=== PATIENT | female | born 1955 | race Two or more races ===

== ENCOUNTER 2021-11-03 17:34 | Emergency (ER) | payer MEDICARE, OTHER ==
[~2021-11-03] VITALS: Ht 167.6 cm; Wt 102.1 kg
--- NOTE | 2021-11-03 17:45 | NUR ---
[facility] from assisted living on room air, breathing evenly and unlabored. Per pateint c/o R knee pain. Kept comfortable, will continue to monitor accordingly.
[2021-11-03] MEDS ORDERED: HYDROMORPHONE HCL 2 MG TABLET PO PRN (18:00)
[2021-11-03] MEDS ORDERED: HYDROMORPHONE HCL 2 MG TABLET ONE (18:10)
--- NOTE | 2021-11-03 20:46 | NUR ---
[facility] CALLED FOR BLS BACK TO SNF PER [facility] ETA - 60MIN
[2021-11-03] MEDS ORDERED: oxyCODONE HCL SR 20MG TAB.SR.12H PO SCH (21:00)
--- NOTE | 2021-11-03 21:26 | NUR ---
report given to Severance Helenwood
[2021-11-03] MEDS ORDERED: oxyCODONE IR immediate release 5 MG ONE (22:33)
--- NOTE | 2021-11-03 22:39 | NUR ---
REPORT GIVEN TO SHARONA COLEMAN FOR TRANSPORT BACK TO FACILITY
[2021-11-03 23:20] VITALS: BP 135/70
== END 2021-11-03 23:21 ==
LOC: ER 17:41
DX: I87.2 Venous insufficiency (chronic) (peripheral) (principal); R60.0 Localized edema; F32.A Depression, unspecified; Z88.2 Allergy status to sulfonamides; Z88.8 Allergy status to other drugs, medicaments and biological substances
CPT/HCPCS: 93971-TC

== ENCOUNTER 2022-12-12 13:31 | Inpatient (IN) | payer MEDICARE, OTHER ==
[~2022-12-12] VITALS: Ht 167.6 cm; Wt 95.3 kg
[2022-12-12] MEDS ORDERED: IV NS 0.9% 500 ML BAG IV ONE (15:30)
[2022-12-12 15:51] LABS: BASOPHILS # (AUTO) 0.1 K/uL (0.0-0.2); BASOPHILS % (AUTO) 0.4 % (0.0-2.0); EOSINOPHILS # (AUTO) 0.1 K/uL (0.0-0.7); EOSINOPHILS % (AUTO) 0.6 % (0.0-6.0); HEMATOCRIT 47 % (33-45); HEMOGLOBIN 14.6 g/dL (11.5-14.8); LYMPHOCYTES # (AUTO) 1.4 K/uL (0.8-4.8); MEAN CORPUSCULAR HEMOGLOBIN 30 PG (26.0-33.0); MEAN CORPUSCULAR HGB CONC 31 g/dl (31.0-36.0); MEAN CORPUSCULAR VOLUME 95 fL (82-100); MONOCYTES # (AUTO) 0.8 K/uL (0.1-1.30); MONOCYTES % (AUTO) 5.8 % (2.0-12.0); NEUTROPHILS # (AUTO) 11.3 K/uL (1.8-8.9); NEUTROPHILS % (AUTO) 83.2 % (43.0-81.0); PLATELET COUNT (AUTO) 354 K/uL (150-450); RED BLOOD CELL COUNT(AUTO) 4.91 MIL/uL (4.0-5.2); RED CELL DISTRIBUTION WIDTH 17.6 % (11.5-15.0); WHITE BLOOD COUNT (AUTO) 13.6 K/uL (4.3-11.0)
[2022-12-12 16:02] LABS: ALBUMIN 3.1 g/dL (3.4-5.0); BILIRUBIN,DIRECT 0.1 mg/dL (0.0-0.2); BILIRUBIN,TOTAL 0.3 mg/dL (0.2-1.0); CALCIUM, SERUM 9.3 mg/dL (8.5-10.1); POTASSIUM 4.4 mmol/L (3.5-5.1); TOTAL PROTEIN, SERUM 7.7 g/dL (6.4-8.2)
[2022-12-12 16:04] LABS: INR 1.08 (0.91-1.10); PARTIAL THROMBOPLASTIN TIME 41.6 SEC (24.3-34.3); PROTHROMBIN TIME 11.3 SECS (9.2-11.1)
[2022-12-12 16:10] LABS: APPEARANCE,URINE TURBID (CLEAR); BILIRUBIN,URINE 2+ (NEGATIVE); BLOOD, URINE 3+ Ery/uL (NEGATIVE); COLOR,URINE RED (YELLOW); KETONES,URINE 1+ mg/dL (NEGATIVE); LEUKOCYTE ESTERASE ,URINE 3+ (NEGATIVE); NITRITE, URINE POSITIVE (NEGATIVE); PH,URINE 7.5 (5.0-8.0); PROTEIN,URINE 3+ mg/dl (NEGATIVE); UGLUCOSE NEGATIVE (NEGATIVE)
[2022-12-12] MEDS ORDERED: CEFTRIAXONE 1GM BAG (ER ONLY) 50 ML IV ONE ×2 (16:30→16:54)
[2022-12-12] MEDS ORDERED: TRIA80CR12 TP (16:46)
[2022-12-12] MEDS ORDERED: POTA8TAB3 PO (16:46)
[2022-12-12] MEDS ORDERED: ESCI10TA PO (16:46)
[2022-12-12] MEDS ORDERED: FURO-144 PO (16:46)
[2022-12-12] MEDS ORDERED: HYDR2TAB7 PO (16:46)
[2022-12-12] MEDS ORDERED: APIX2.5T PO (16:46)
[2022-12-12] MEDS ORDERED: HYDR-3895 PO (16:46)
[2022-12-12] MEDS ORDERED: LIDO10VI IJ (16:46)
[2022-12-12] MEDS ORDERED: ACET-868 PO (16:46)
[2022-12-12] MEDS ORDERED: OXYC20TA42 PO (16:46)
[2022-12-12] MEDS ORDERED: GABA800T11 PO (16:46)
[2022-12-12 16:47] LABS: RBC,URINE TOO NUMEROUS TO COUN /HPF (0-2); WBC,URINE TOO NUMEROUS TO COUN /HPF (0-3)
[2022-12-12 16:49] LABS: ADD URINE CULTURE YES; BACTERIA,URINE Many /HPF (None Seen); CALCIUM OXALATE CRYSTALS,UR Few /HPF (None Seen); SQUAMOUS EPITHELIAL CELL,UR Few /HPF (None Seen); URINE AMORPHOUS URATE Many /HPF (None Seen)
[2022-12-12 17:38] LABS: LACTIC ACID 1.5 mmol/L (0.4-2.0)
[2022-12-12] MEDS ORDERED: ONDANSETRON HCL/PF 4 MG/2 ML VIAL IVP PRN (18:00)
[2022-12-12] MEDS ORDERED: MAG HYDROX/AL HYDROX/SIMETH 30 ML UDC PO PRN (18:00)
[2022-12-12] MEDS ORDERED: Z GUARD REMEDY 4 OZ OINT TP PRN (18:00)
[2022-12-12] MEDS ORDERED: ZOLPIDEM TARTRATE 5 MG TABLET PO PRN (18:00)
[2022-12-12] MEDS ORDERED: MAGNESIUM HYDROXIDE 30 ML UDC PO PRN (18:00)
[2022-12-12] MEDS ORDERED: ACETAMINOPHEN 325 MG TABLET PO PRN (18:00)
[2022-12-12] MEDS ORDERED: hydrOXYzine PAMOATE 25 MG CAPSULE PO PRN (19:30)
[2022-12-12 20:30] VITALS: BP 94/65; TEMP 97.6; O2SAT 100
[2022-12-12] MEDS: CEFTRIAXONE 1 G in IV D5W 50 ML IV SCH (21:31)
[2022-12-12] MEDS: IV NS 0.9% 1,000 ML IV PRN (21:35)
[2022-12-13] VITALS: BP 100/65; TEMP 97.8; O2SAT 100
[2022-12-13 04:12] VITALS: BP 100/57; TEMP 97.6; O2SAT 99
[2022-12-13 05:47] LABS: BASOPHILS % (AUTO) 0.2 % (0.0-2.0); EOSINOPHILS # (AUTO) 0.1 K/uL (0.0-0.7); EOSINOPHILS % (AUTO) 0.4 % (0.0-6.0); HEMATOCRIT 50 % (33-45); HEMOGLOBIN 14.9 g/dL (11.5-14.8); LYMPHOCYTES # (AUTO) 1.6 K/uL (0.8-4.8); LYMPHOCYTES % (AUTO) 10.5 % (20.0-44.0); MEAN CORPUSCULAR HEMOGLOBIN 30 PG (26.0-33.0); MEAN CORPUSCULAR HGB CONC 30 g/dl (31.0-36.0); MEAN CORPUSCULAR VOLUME 100 fL (82-100); MONOCYTES # (AUTO) 0.9 K/uL (0.1-1.30); NEUTROPHILS # (AUTO) 12.4 K/uL (1.8-8.9); NEUTROPHILS % (AUTO) 82.9 % (43.0-81.0); PLATELET COUNT (AUTO) 275 K/uL (150-450); RED CELL DISTRIBUTION WIDTH 19.6 % (11.5-15.0); WHITE BLOOD COUNT (AUTO) 14.9 K/uL (4.3-11.0)
[2022-12-13 06:15] LABS: CALCIUM, SERUM 8.9 mg/dL (8.5-10.1); CREATININE 2.8 mg/dL (0.6-1.3); MAGNESIUM 2.9 mg/dL (1.8-2.4); PHOSPHORUS 5.7 mg/dL (2.5-4.9); POTASSIUM 4.7 mmol/L (3.5-5.1)
[2022-12-13] MEDS: IV NS 0.9% 1,000 ML IV PRN (06:25)
[2022-12-13 07:30] VITALS: BP 84/46; TEMP 97.5; O2SAT 94
[2022-12-13] MEDS ORDERED: oxyCODONE HCL SR 20MG TAB.SR.12H PO SCH (08:00)
[2022-12-13] MEDS: PANTOPRAZOLE 40 MG TABLET.DR PO SCH (08:13)
[2022-12-13] MEDS: ESCITALOPRAM OXALATE (10 MG) 10 MG TABLET PO SCH (08:56)
[2022-12-13] MEDS: HYDROMORPHONE HCL 2 MG TABLET PO SCH ×2 (08:56→16:35)
[2022-12-13] MEDS: GABAPENTIN 400 MG CAPSULE PO SCH ×3 (08:56→16:35)
[2022-12-13] MEDS ORDERED: HEPARIN SODIUM, PORCINE 5000 UNITS/1 ML VIAL SQ SCH (09:00)
[2022-12-13] MEDS ORDERED: Sodium Bicarbonate 100 MEQ in IV D5/0.45 NACL 1,000 ML IV PRN (10:00)
[2022-12-13] MEDS: Sodium Bicarbonate 100 MEQ in IV D5/0.45 NACL 1,000 ML IV SCH ×2 (11:39→20:20)
[2022-12-13 12:00] VITALS: BP 82/44; TEMP 97.3; O2SAT 94
[2022-12-13] MEDS: CITRIC ACID/SODIUM CITRATE (BICITRA)15 ML UDC PO SCH ×3 (13:49→21:49)
[2022-12-13 16:00] VITALS: BP 86/62; TEMP 97.2; O2SAT 99
[2022-12-13 18:49] LABS: CREATININE, URINE 37.2 MG/DL (30.0-125.0); URINE TOTAL PROTEIN 540.4 mg/dL (0-11.9)
[2022-12-13 19:46] LABS: APPEARANCE,URINE Cloudy (CLEAR)
[2022-12-13 19:47] LABS: COLOR,URINE BROWN (YELLOW)
[2022-12-13 19:53] LABS: BACTERIA,URINE 3+ /HPF (None Seen); RBC,URINE TOO NUMEROUS TO COUN /HPF (0-2); WBC,URINE 51-80 /HPF (0-3)
[2022-12-13 19:54] LABS: SQUAMOUS EPITHELIAL CELL,UR 0-2 /HPF (None Seen)
[2022-12-13 20:00] VITALS: BP 91/51; TEMP 97.9; O2SAT 95
[2022-12-13] MEDS: CEFTRIAXONE 1 G in IV D5W 50 ML IV SCH ×2 (20:21→21:48)
[2022-12-13 21:29] LABS: EOSINOPHIL,URINE Few
[2022-12-14] VITALS: BP 89/56; TEMP 97.4; O2SAT 97
[2022-12-14 04:00] VITALS: BP 95/58; TEMP 96.8; O2SAT 96
[2022-12-14 05:47] LABS: BASOPHILS % (AUTO) 0.2 % (0.0-2.0); EOSINOPHILS # (AUTO) 0.2 K/uL (0.0-0.7); EOSINOPHILS % (AUTO) 1.3 % (0.0-6.0); HEMATOCRIT 40 % (33-45); HEMOGLOBIN 12.6 g/dL (11.5-14.8); LYMPHOCYTES # (AUTO) 1.1 K/uL (0.8-4.8); LYMPHOCYTES % (AUTO) 9.6 % (20.0-44.0); MEAN CORPUSCULAR HEMOGLOBIN 30 PG (26.0-33.0); MEAN CORPUSCULAR HGB CONC 31 g/dl (31.0-36.0); MEAN CORPUSCULAR VOLUME 94 fL (82-100); MONOCYTES # (AUTO) 0.6 K/uL (0.1-1.30); MONOCYTES % (AUTO) 5.6 % (2.0-12.0); NEUTROPHILS # (AUTO) 9.5 K/uL (1.8-8.9); NEUTROPHILS % (AUTO) 83.3 % (43.0-81.0); PLATELET COUNT (AUTO) 265 K/uL (150-450); RED BLOOD CELL COUNT(AUTO) 4.25 MIL/uL (4.0-5.2); RED CELL DISTRIBUTION WIDTH 17.8 % (11.5-15.0); WHITE BLOOD COUNT (AUTO) 11.5 K/uL (4.3-11.0)
[2022-12-14 06:10] LABS: CALCIUM, SERUM 8.5 mg/dL (8.5-10.1); CREATININE 3.2 mg/dL (0.6-1.3); MAGNESIUM 2.4 mg/dL (1.8-2.4); POTASSIUM 3.5 mmol/L (3.5-5.1)
[2022-12-14 06:23] LABS: ALBUMIN 2.5 g/dL (3.4-5.0); BILIRUBIN,TOTAL 0.2 mg/dL (0.2-1.0); TOTAL PROTEIN, SERUM 6.4 g/dL (6.4-8.2)
[2022-12-14] MEDS: Sodium Bicarbonate 100 MEQ in IV D5/0.45 NACL 1,000 ML IV SCH ×2 (06:35→17:18)
[2022-12-14 08:00] VITALS: BP 82/46; TEMP 97.4; O2SAT 94
[2022-12-14] MEDS ORDERED: NEPRO VAN 237 ML CAN PO PRN (08:30)
[2022-12-14] MEDS: HYDROMORPHONE HCL 2 MG TABLET PO SCH ×2 (09:10→17:00)
[2022-12-14] MEDS: PANTOPRAZOLE 40 MG TABLET.DR PO SCH (09:10)
[2022-12-14] MEDS: ESCITALOPRAM OXALATE (10 MG) 10 MG TABLET PO SCH (09:10)
[2022-12-14] MEDS: GABAPENTIN 400 MG CAPSULE PO SCH ×4 (09:10→17:00)
[2022-12-14] MEDS: CITRIC ACID/SODIUM CITRATE (BICITRA)15 ML UDC PO SCH ×6 (09:10→21:00)
[2022-12-14 16:00] VITALS: BP 96/49; TEMP 98.6; O2SAT 96
[2022-12-14 20:00] VITALS: BP 73/44; TEMP 98.1; O2SAT 98
[2022-12-14] MEDS: CEFTRIAXONE 1 G in IV D5W 50 ML IV SCH (20:22)
[2022-12-14] MEDS: oxyCODONE IR immediate release 5 MG PO SCH (21:00)
[2022-12-15] VITALS (7 sets, daily range): BP systolic 75–104; BP diastolic 44–60; TEMP 97.3–98.2; O2SAT 96–99
[2022-12-15] MEDS: Sodium Bicarbonate 100 MEQ in IV D5/0.45 NACL 1,000 ML IV SCH ×3 (02:04→22:28)
[2022-12-15] MEDS: oxyCODONE IR immediate release 5 MG PO SCH ×3 (05:00→21:00)
[2022-12-15 06:07] LABS: PTH, INTACT 47 pg/mL (15-65)
[2022-12-15 07:24] LABS: BASOPHILS % (AUTO) 0.3 % (0.0-2.0); EOSINOPHILS # (AUTO) 0.2 K/uL (0.0-0.7); EOSINOPHILS % (AUTO) 2.5 % (0.0-6.0); HEMATOCRIT 36 % (33-45); HEMOGLOBIN 11.6 g/dL (11.5-14.8); LYMPHOCYTES % (AUTO) 12.6 % (20.0-44.0); MEAN CORPUSCULAR HEMOGLOBIN 30 PG (26.0-33.0); MEAN CORPUSCULAR HGB CONC 32 g/dl (31.0-36.0); MEAN CORPUSCULAR VOLUME 93 fL (82-100); MONOCYTES # (AUTO) 0.5 K/uL (0.1-1.30); MONOCYTES % (AUTO) 5.9 % (2.0-12.0); NEUTROPHILS # (AUTO) 6.1 K/uL (1.8-8.9); NEUTROPHILS % (AUTO) 78.7 % (43.0-81.0); PLATELET COUNT (AUTO) 234 K/uL (150-450); RED BLOOD CELL COUNT(AUTO) 3.84 MIL/uL (4.0-5.2); RED CELL DISTRIBUTION WIDTH 17.5 % (11.5-15.0); WHITE BLOOD COUNT (AUTO) 7.8 K/uL (4.3-11.0)
[2022-12-15] MEDS: PANTOPRAZOLE 40 MG TABLET.DR PO SCH (07:30)
[2022-12-15 07:50] LABS: CREATININE 2.9 mg/dL (0.6-1.3); MAGNESIUM 2.2 mg/dL (1.8-2.4); PHOSPHORUS 4.6 mg/dL (2.5-4.9); POTASSIUM 3.1 mmol/L (3.5-5.1)
[2022-12-15] MEDS: GABAPENTIN 400 MG CAPSULE PO SCH ×3 (09:00→17:00)
[2022-12-15] MEDS: ESCITALOPRAM OXALATE (10 MG) 10 MG TABLET PO SCH (09:00)
[2022-12-15] MEDS: HYDROMORPHONE HCL 2 MG TABLET PO SCH ×2 (09:00→17:00)
[2022-12-15] MEDS: CITRIC ACID/SODIUM CITRATE (BICITRA)15 ML UDC PO SCH ×4 (09:00→20:26)
[2022-12-15] MEDS ORDERED: LEVOFLOXACIN 500 MG /D5W 100ML 500 MG in PREMIX 1 EA IV SCH ×4 (11:00)
[2022-12-15] MEDS ORDERED: POTASSIUM CHLORIDE 20 MEQ POWDER PACKET PO ONE (15:00)
[2022-12-15] MEDS: CEFTRIAXONE 1 G in IV D5W 50 ML IV SCH (19:54)
[2022-12-16] VITALS: BP 102/58; TEMP 97.9; O2SAT 97
[2022-12-16 04:00] VITALS: BP 100/58; TEMP 97.9; O2SAT 95
[2022-12-16] MEDS: oxyCODONE IR immediate release 5 MG PO SCH ×3 (04:51→20:41)
[2022-12-16 05:42] LABS: BASOPHILS % (AUTO) 0.6 % (0.0-2.0); EOSINOPHILS # (AUTO) 0.2 K/uL (0.0-0.7); EOSINOPHILS % (AUTO) 2.2 % (0.0-6.0); HEMATOCRIT 37 % (33-45); HEMOGLOBIN 11.5 g/dL (11.5-14.8); LYMPHOCYTES # (AUTO) 0.8 K/uL (0.8-4.8); LYMPHOCYTES % (AUTO) 11.3 % (20.0-44.0); MEAN CORPUSCULAR HEMOGLOBIN 30 PG (26.0-33.0); MEAN CORPUSCULAR HGB CONC 32 g/dl (31.0-36.0); MEAN CORPUSCULAR VOLUME 94 fL (82-100); MONOCYTES # (AUTO) 0.6 K/uL (0.1-1.30); MONOCYTES % (AUTO) 7.8 % (2.0-12.0); NEUTROPHILS # (AUTO) 5.6 K/uL (1.8-8.9); NEUTROPHILS % (AUTO) 78.1 % (43.0-81.0); PLATELET COUNT (AUTO) 220 K/uL (150-450); RED BLOOD CELL COUNT(AUTO) 3.89 MIL/uL (4.0-5.2); RED CELL DISTRIBUTION WIDTH 17.4 % (11.5-15.0); WHITE BLOOD COUNT (AUTO) 7.2 K/uL (4.3-11.0)
[2022-12-16 05:57] LABS: CALCIUM, SERUM 8.2 mg/dL (8.5-10.1); CREATININE 2.6 mg/dL (0.6-1.3); MAGNESIUM 2.2 mg/dL (1.8-2.4); PHOSPHORUS 4.2 mg/dL (2.5-4.9); POTASSIUM 2.9 mmol/L (3.5-5.1)
[2022-12-16] MEDS: PANTOPRAZOLE 40 MG TABLET.DR PO SCH (07:28)
[2022-12-16 08:29] VITALS: BP 99/60; TEMP 97.5; O2SAT 94
[2022-12-16] MEDS: Sodium Bicarbonate 100 MEQ in IV D5/0.45 NACL 1,000 ML IV SCH ×2 (08:43→17:55)
[2022-12-16] MEDS: HYDROMORPHONE HCL 2 MG TABLET PO SCH ×2 (08:51→16:12)
[2022-12-16] MEDS: ESCITALOPRAM OXALATE (10 MG) 10 MG TABLET PO SCH (08:51)
[2022-12-16] MEDS: CITRIC ACID/SODIUM CITRATE (BICITRA)15 ML UDC PO SCH ×4 (08:52→20:24)
[2022-12-16] MEDS: GABAPENTIN 400 MG CAPSULE PO SCH ×3 (08:52→16:13)
[2022-12-16 13:28] VITALS: BP 81/51; TEMP 99; O2SAT 93
[2022-12-16] MEDS ORDERED: MEGESTROL ACETATE 40 MG TABLET PO SCH (14:00)
[2022-12-16 15:09] LABS: CALCIUM, SERUM 8.2 mg/dL (8.5-10.1); CREATININE 2.5 mg/dL (0.6-1.3); POTASSIUM 3.4 mmol/L (3.5-5.1)
[2022-12-16] MEDS: MEGESTROL ACETATE SUSP 400 MG/10 ML UDC PO SCH (15:09)
[2022-12-16] MEDS: CEFTRIAXONE 1 G in IV D5W 50 ML IV SCH (19:42)
[2022-12-16 20:00] VITALS: BP 99/45; TEMP 98.2; O2SAT 93
[2022-12-16] MEDS: LACTULOSE 10 G/15 ML UDC (PYXIS) PO SCH (23:29)
[2022-12-16] MEDS ORDERED: oxyCODONE HCL SR 20MG TAB.SR.12H PO ONE (23:30)
[2022-12-17] VITALS (7 sets, daily range): BP systolic 90–96; BP diastolic 50–63; TEMP 97.6–100.2; O2SAT 92–98
[2022-12-17] MEDS ORDERED: oxyCODONE IR immediate release 5 MG PO ONE
[2022-12-17] MEDS: Sodium Bicarbonate 100 MEQ in IV D5/0.45 NACL 1,000 ML IV SCH ×2 (04:04→14:08)
[2022-12-17] MEDS: oxyCODONE IR immediate release 5 MG PO SCH ×3 (05:00→21:00)
[2022-12-17 06:20] LABS: BASOPHILS % (AUTO) 0.2 % (0.0-2.0); EOSINOPHILS # (AUTO) 0.2 K/uL (0.0-0.7); HEMATOCRIT 36 % (33-45); HEMOGLOBIN 11.4 g/dL (11.5-14.8); LYMPHOCYTES # (AUTO) 1.3 K/uL (0.8-4.8); LYMPHOCYTES % (AUTO) 17.5 % (20.0-44.0); MEAN CORPUSCULAR HEMOGLOBIN 30 PG (26.0-33.0); MEAN CORPUSCULAR HGB CONC 32 g/dl (31.0-36.0); MEAN CORPUSCULAR VOLUME 93 fL (82-100); MONOCYTES # (AUTO) 0.7 K/uL (0.1-1.30); MONOCYTES % (AUTO) 9.3 % (2.0-12.0); NEUTROPHILS # (AUTO) 5.4 K/uL (1.8-8.9); PLATELET COUNT (AUTO) 227 K/uL (150-450); RED CELL DISTRIBUTION WIDTH 17.6 % (11.5-15.0); WHITE BLOOD COUNT (AUTO) 7.7 K/uL (4.3-11.0)
[2022-12-17 07:11] LABS: CALCIUM, SERUM 8.7 mg/dL (8.5-10.1); CREATININE 2.4 mg/dL (0.6-1.3); MAGNESIUM 2.2 mg/dL (1.8-2.4); PHOSPHORUS 3.3 mg/dL (2.5-4.9)
[2022-12-17 07:42] LABS: POTASSIUM 2.7 mmol/L (3.5-5.1)
[2022-12-17] MEDS: MEGESTROL ACETATE SUSP 400 MG/10 ML UDC PO SCH (08:09)
[2022-12-17] MEDS: ESCITALOPRAM OXALATE (10 MG) 10 MG TABLET PO SCH (08:10)
[2022-12-17] MEDS: PANTOPRAZOLE 40 MG TABLET.DR PO SCH (08:10)
[2022-12-17] MEDS: HYDROMORPHONE HCL 2 MG TABLET PO SCH ×2 (08:10→16:08)
[2022-12-17] MEDS: GABAPENTIN 400 MG CAPSULE PO SCH ×4 (08:10→16:27)
[2022-12-17] MEDS: LACTULOSE 10 G/15 ML UDC (PYXIS) PO SCH ×3 (08:10→16:27)
[2022-12-17] MEDS: CITRIC ACID/SODIUM CITRATE (BICITRA)15 ML UDC PO SCH ×5 (08:11→21:00)
[2022-12-17] MEDS: POTASSIUM CHLORIDE 20 MEQ POWDER PACKET PO STA ×2 (09:43→10:14)
[2022-12-17] MEDS: LEVOFLOXACIN (250MG) 250 MG TABLET PO SCH (10:24)
[2022-12-17] MEDS ORDERED: POTASSIUM CL. PREMIX PERIPHER. 50 ML IV ONE (10:30)
[2022-12-17] MEDS: POTASSIUM CL. PREMIX PERIPHER. 50 ML IV SCH ×5 (11:41→15:34)
[2022-12-17 12:07] LABS: *SPE A/G RATIO 0.9 (0.7-1.7); *SPE ALBUMIN 2.8 g/dL (2.9-4.4); *SPE ALPHA-1-GLOBULIN 0.3 g/dL (0.0-0.4); *SPE ALPHA-2-GLOBULIN 0.7 g/dL (0.4-1.0); *SPE M-SPIKE 0.1 g/dL (Not Observed); *SPE PROTEIN TOTAL 5.8 g/dL (6.0-8.5)
[2022-12-17] MEDS ORDERED: IV NS 0.9% 1,000 ML IV ONE (14:30)
[2022-12-17 15:07] LABS: CALCIUM, SERUM 8.5 mg/dL (8.5-10.1); CREATININE 2.2 mg/dL (0.6-1.3); POTASSIUM 3.3 mmol/L (3.5-5.1)
[2022-12-17] MEDS: CEFTRIAXONE 1 G in IV D5W 50 ML IV SCH (20:53)
[2022-12-17] MEDS ORDERED: MORPHINE SULFATE INJ 2 MG/ML DISP.SYRIN IV ONE (22:00)
[2022-12-18] VITALS: BP 91/55; TEMP 99; O2SAT 95
[2022-12-18 03:58] VITALS: BP 102/49; TEMP 99.3; O2SAT 95
[2022-12-18] MEDS ORDERED: MORPHINE SULFATE INJ 2 MG/ML DISP.SYRIN IV ONE (04:00)
[2022-12-18] MEDS: oxyCODONE IR immediate release 5 MG PO SCH ×3 (05:00→21:00)
[2022-12-18 07:04] VITALS: BP 85/46
[2022-12-18 07:17] LABS: BILIRUBIN,TOTAL 0.3 mg/dL (0.2-1.0); CALCIUM, SERUM 8.7 mg/dL (8.5-10.1); PHOSPHORUS 2.7 mg/dL (2.5-4.9); POTASSIUM 3.5 mmol/L (3.5-5.1); TOTAL PROTEIN, SERUM 5.8 g/dL (6.4-8.2)
[2022-12-18 07:20] LABS: BASOPHILS # (AUTO) 0.1 K/uL (0.0-0.2); BASOPHILS % (AUTO) 0.6 % (0.0-2.0); EOSINOPHILS # (AUTO) 0.2 K/uL (0.0-0.7); EOSINOPHILS % (AUTO) 1.6 % (0.0-6.0); HEMATOCRIT 36 % (33-45); HEMOGLOBIN 11.3 g/dL (11.5-14.8); LYMPHOCYTES # (AUTO) 1.5 K/uL (0.8-4.8); LYMPHOCYTES % (AUTO) 13.3 % (20.0-44.0); MEAN CORPUSCULAR HEMOGLOBIN 29 PG (26.0-33.0); MEAN CORPUSCULAR HGB CONC 31 g/dl (31.0-36.0); MEAN CORPUSCULAR VOLUME 93 fL (82-100); MONOCYTES # (AUTO) 0.9 K/uL (0.1-1.30); MONOCYTES % (AUTO) 7.6 % (2.0-12.0); NEUTROPHILS # (AUTO) 8.6 K/uL (1.8-8.9); NEUTROPHILS % (AUTO) 76.9 % (43.0-81.0); PLATELET COUNT (AUTO) 224 K/uL (150-450); RED CELL DISTRIBUTION WIDTH 17.4 % (11.5-15.0); WHITE BLOOD COUNT (AUTO) 11.2 K/uL (4.3-11.0)
[2022-12-18 07:30] VITALS: BP 93/43; TEMP 98.6; O2SAT 97
[2022-12-18] MEDS: LACTULOSE 10 G/15 ML UDC (PYXIS) PO SCH ×3 (09:12→17:00)
[2022-12-18] MEDS: ESCITALOPRAM OXALATE (10 MG) 10 MG TABLET PO SCH (09:12)
[2022-12-18] MEDS: CITRIC ACID/SODIUM CITRATE (BICITRA)15 ML UDC PO SCH ×5 (09:12→21:00)
[2022-12-18] MEDS: MEGESTROL ACETATE SUSP 400 MG/10 ML UDC PO SCH (09:12)
[2022-12-18] MEDS: HYDROMORPHONE HCL 2 MG TABLET PO SCH (09:13)
[2022-12-18] MEDS: GABAPENTIN 400 MG CAPSULE PO SCH ×3 (09:13→16:02)
[2022-12-18] MEDS: PANTOPRAZOLE 40 MG TABLET.DR PO SCH (09:27)
[2022-12-18 16:00] VITALS: BP 82/48; TEMP 98.6; O2SAT 96
[2022-12-18] MEDS ORDERED: hydrALAZINE HCL 10 MG TABLET PO PRN (16:30)
[2022-12-18] MEDS ORDERED: hydrALAZINE HCL 10 MG TABLET PO SCH (18:00)
[2022-12-18 19:30] VITALS: BP 103/66; TEMP 100.6; O2SAT 91
[2022-12-18] MEDS: CEFTRIAXONE 1 G in IV D5W 50 ML IV SCH (20:21)
[2022-12-19] MEDS: oxyCODONE IR immediate release 5 MG PO SCH ×3 (06:03→21:00)
[2022-12-19 07:30] VITALS: BP 94/57; TEMP 99.7; O2SAT 92
[2022-12-19] MEDS: PANTOPRAZOLE 40 MG TABLET.DR PO SCH (07:44)
[2022-12-19] MEDS: ESCITALOPRAM OXALATE (10 MG) 10 MG TABLET PO SCH (08:28)
[2022-12-19] MEDS: GABAPENTIN 400 MG CAPSULE PO SCH ×3 (08:28→16:16)
[2022-12-19] MEDS: MEGESTROL ACETATE SUSP 400 MG/10 ML UDC PO SCH (09:00)
[2022-12-19] MEDS: LACTULOSE 10 G/15 ML UDC (PYXIS) PO SCH ×2 (09:00→16:16)
[2022-12-19] MEDS: CITRIC ACID/SODIUM CITRATE (BICITRA)15 ML UDC PO SCH ×4 (09:00→21:00)
[2022-12-19 09:56] LABS: BASOPHILS # (AUTO) 0.1 K/uL (0.0-0.2); BASOPHILS % (AUTO) 0.5 % (0.0-2.0); EOSINOPHILS # (AUTO) 0.1 K/uL (0.0-0.7); EOSINOPHILS % (AUTO) 0.5 % (0.0-6.0); HEMATOCRIT 39 % (33-45); HEMOGLOBIN 11.7 g/dL (11.5-14.8); LYMPHOCYTES # (AUTO) 1.5 K/uL (0.8-4.8); LYMPHOCYTES % (AUTO) 6.4 % (20.0-44.0); MEAN CORPUSCULAR HEMOGLOBIN 29 PG (26.0-33.0); MEAN CORPUSCULAR HGB CONC 30 g/dl (31.0-36.0); MEAN CORPUSCULAR VOLUME 97 fL (82-100); MONOCYTES # (AUTO) 1.2 K/uL (0.1-1.30); MONOCYTES % (AUTO) 4.9 % (2.0-12.0); NEUTROPHILS # (AUTO) 20.9 K/uL (1.8-8.9); NEUTROPHILS % (AUTO) 87.7 % (43.0-81.0); PLATELET COUNT (AUTO) 219 K/uL (150-450); RED BLOOD CELL COUNT(AUTO) 3.98 MIL/uL (4.0-5.2); RED CELL DISTRIBUTION WIDTH 18.6 % (11.5-15.0); WHITE BLOOD COUNT (AUTO) 23.8 K/uL (4.3-11.0)
[2022-12-19 10:09] LABS: ALBUMIN 2.2 g/dL (3.4-5.0); BILIRUBIN,TOTAL 0.3 mg/dL (0.2-1.0); CREATININE 2.1 mg/dL (0.6-1.3); MAGNESIUM 2.2 mg/dL (1.8-2.4); PHOSPHORUS 3.5 mg/dL (2.5-4.9); POTASSIUM 3.7 mmol/L (3.5-5.1); TOTAL PROTEIN, SERUM 6.6 g/dL (6.4-8.2)
[2022-12-19] MEDS: LEVOFLOXACIN (250MG) 250 MG TABLET PO SCH (11:00)
[2022-12-19] MEDS ORDERED: IV D5/ 0.9% NACL 1,000 ML IV ONE (14:00)
[2022-12-19] MEDS: VANCOMYCIN 0.75 GM in IV D5W 250 ML IV SCH (15:25)
[2022-12-19] MEDS ORDERED: CEFEPIME 1 GM in IV D5W 50 ML IV SCH (16:00)
[2022-12-19 19:14] LABS: APPEARANCE,URINE CLOUDY (CLEAR); BILIRUBIN,URINE NEGATIVE (NEGATIVE); BLOOD, URINE 2+ Ery/uL (NEGATIVE); COLOR,URINE YELLOW (YELLOW); KETONES,URINE NEGATIVE (NEGATIVE); LEUKOCYTE ESTERASE ,URINE 2+ (NEGATIVE); NITRITE, URINE NEGATIVE (NEGATIVE); PROTEIN,URINE 1+ mg/dl (NEGATIVE); UGLUCOSE NEGATIVE (NEGATIVE); UROBILINOGEN,URINE 0.2 EU/dL (0.2)
[2022-12-19 19:31] LABS: ADD URINE CULTURE YES; BACTERIA,URINE 3+ /HPF (None Seen); MUCUS,URINE Moderate /LPF (None Seen); WBC,URINE 21-50 /HPF (0-3)
[2022-12-19 20:00] VITALS: BP 91/61; TEMP 98.1; O2SAT 97
[2022-12-19] MEDS: MEROPENEM 500 MG in IV NS 0.9% 50 ML IV SCH (21:29)
[2022-12-20] VITALS: BP 96/56; TEMP 99.7; O2SAT 93
[2022-12-20] MEDS ORDERED: IV D5/ 0.9% NACL 1,000 ML IV PRN (04:26)
[2022-12-20] MEDS: oxyCODONE IR immediate release 5 MG PO SCH ×3 (05:00→21:00)
[2022-12-20 06:02] VITALS: BP 95/65; TEMP 98.6; O2SAT 99
[2022-12-20 07:22] LABS: BASOPHILS # (AUTO) 0.1 K/uL (0.0-0.2); BASOPHILS % (AUTO) 0.4 % (0.0-2.0); EOSINOPHILS # (AUTO) 0.3 K/uL (0.0-0.7); EOSINOPHILS % (AUTO) 1.4 % (0.0-6.0); HEMATOCRIT 35 % (33-45); MEAN CORPUSCULAR HEMOGLOBIN 30 PG (26.0-33.0); MEAN CORPUSCULAR HGB CONC 31 g/dl (31.0-36.0); MEAN CORPUSCULAR VOLUME 97 fL (82-100); MONOCYTES # (AUTO) 0.8 K/uL (0.1-1.30); NEUTROPHILS # (AUTO) 17.5 K/uL (1.8-8.9); NEUTROPHILS % (AUTO) 89.2 % (43.0-81.0); PLATELET COUNT (AUTO) 212 K/uL (150-450); RED BLOOD CELL COUNT(AUTO) 3.67 MIL/uL (4.0-5.2); RED CELL DISTRIBUTION WIDTH 17.7 % (11.5-15.0); WHITE BLOOD COUNT (AUTO) 19.6 K/uL (4.3-11.0)
[2022-12-20] MEDS: PANTOPRAZOLE 40 MG TABLET.DR PO SCH (07:29)
[2022-12-20 07:30] VITALS: BP 89/47; TEMP 98.6; O2SAT 95
[2022-12-20 07:40] LABS: ALBUMIN 1.9 g/dL (3.4-5.0); BILIRUBIN,TOTAL 0.4 mg/dL (0.2-1.0); CALCIUM, SERUM 9.1 mg/dL (8.5-10.1); MAGNESIUM 1.8 mg/dL (1.8-2.4); PHOSPHORUS 2.5 mg/dL (2.5-4.9); POTASSIUM 3.7 mmol/L (3.5-5.1); TOTAL PROTEIN, SERUM 5.9 g/dL (6.4-8.2)
[2022-12-20] MEDS: MEGESTROL ACETATE SUSP 400 MG/10 ML UDC PO SCH (09:00)
[2022-12-20] MEDS: GABAPENTIN 400 MG CAPSULE PO SCH ×3 (09:00→16:38)
[2022-12-20] MEDS: ESCITALOPRAM OXALATE (10 MG) 10 MG TABLET PO SCH (09:00)
[2022-12-20] MEDS: CITRIC ACID/SODIUM CITRATE (BICITRA)15 ML UDC PO SCH ×5 (09:00→21:18)
[2022-12-20] MEDS: LACTULOSE 10 G/15 ML UDC (PYXIS) PO SCH ×3 (09:00→16:39)
[2022-12-20] MEDS: MEROPENEM 500 MG in IV NS 0.9% 50 ML IV SCH ×2 (09:23→21:09)
[2022-12-20 12:00] VITALS: BP 92/47; O2SAT 98
[2022-12-20] MEDS: IV D5/0.45 NACL 1,000 ML IV PRN (12:56)
[2022-12-20] MEDS: VANCOMYCIN 0.75 GM in IV D5W 250 ML IV SCH (14:59)
[2022-12-20 16:00] VITALS: BP 78/34; TEMP 98.8; O2SAT 95
[2022-12-20 20:00] VITALS: BP 100/70; TEMP 97.9; O2SAT 90
[2022-12-21] MEDS: IV D5/0.45 NACL 1,000 ML IV PRN ×2 (01:25→12:45)
[2022-12-21] MEDS: oxyCODONE IR immediate release 5 MG PO SCH ×3 (05:00→20:35)
[2022-12-21 07:00] VITALS: BP 81/47; TEMP 97.9; O2SAT 96
[2022-12-21 07:38] LABS: ALBUMIN 1.6 g/dL (3.4-5.0); BILIRUBIN,TOTAL 0.2 mg/dL (0.2-1.0); CALCIUM, SERUM 8.4 mg/dL (8.5-10.1); CREATININE 1.8 mg/dL (0.6-1.3); MAGNESIUM 1.9 mg/dL (1.8-2.4); POTASSIUM 3.3 mmol/L (3.5-5.1); TOTAL PROTEIN, SERUM 5.3 g/dL (6.4-8.2)
[2022-12-21] MEDS ORDERED: POTASSIUM CHLORIDE 10 MEQ TABLET.SA PO ONE (08:30)
[2022-12-21] MEDS: LACTULOSE 10 G/15 ML UDC (PYXIS) PO SCH ×2 (08:55→17:00)
[2022-12-21] MEDS: CITRIC ACID/SODIUM CITRATE (BICITRA)15 ML UDC PO SCH ×4 (08:55→20:07)
[2022-12-21] MEDS: PANTOPRAZOLE 40 MG TABLET.DR PO SCH (08:56)
[2022-12-21] MEDS: MEGESTROL ACETATE SUSP 400 MG/10 ML UDC PO SCH (08:56)
[2022-12-21] MEDS: ESCITALOPRAM OXALATE (10 MG) 10 MG TABLET PO SCH (08:56)
[2022-12-21] MEDS: GABAPENTIN 400 MG CAPSULE PO SCH ×3 (08:56→16:13)
[2022-12-21] MEDS: MEROPENEM 500 MG in IV NS 0.9% 50 ML IV SCH ×2 (09:25→20:07)
[2022-12-21] MEDS ORDERED: POTASSIUM CHLORIDE 10 MEQ TABLET.SA PO SCH (10:00)
[2022-12-21 11:30] LABS: BASOPHILS % (AUTO) 0.2 % (0.0-2.0); EOSINOPHILS # (AUTO) 0.3 K/uL (0.0-0.7); EOSINOPHILS % (AUTO) 1.5 % (0.0-6.0); HEMATOCRIT 39 % (33-45); HEMOGLOBIN 11.7 g/dL (11.5-14.8); LYMPHOCYTES # (AUTO) 1.5 K/uL (0.8-4.8); LYMPHOCYTES % (AUTO) 8.4 % (20.0-44.0); MEAN CORPUSCULAR HEMOGLOBIN 30 PG (26.0-33.0); MEAN CORPUSCULAR HGB CONC 30 g/dl (31.0-36.0); MEAN CORPUSCULAR VOLUME 100 fL (82-100); MONOCYTES # (AUTO) 0.8 K/uL (0.1-1.30); MONOCYTES % (AUTO) 4.9 % (2.0-12.0); NEUTROPHILS # (AUTO) 14.7 K/uL (1.8-8.9); PLATELET COUNT (AUTO) 178 K/uL (150-450); RED BLOOD CELL COUNT(AUTO) 3.92 MIL/uL (4.0-5.2); RED CELL DISTRIBUTION WIDTH 18.2 % (11.5-15.0); WHITE BLOOD COUNT (AUTO) 17.3 K/uL (4.3-11.0)
[2022-12-21 12:00] VITALS: BP 77/57; TEMP 98; O2SAT 94
[2022-12-21] MEDS: VANCOMYCIN 0.75 GM in IV D5W 250 ML IV SCH (15:19)
[2022-12-21 16:00] VITALS: BP 79/47; TEMP 97.8; O2SAT 96
[2022-12-21 20:00] VITALS: BP 97/54; TEMP 98.2; O2SAT 97
[2022-12-22] VITALS: BP 93/63; TEMP 98.2; O2SAT 96
[2022-12-22 04:00] VITALS: BP 90/62; TEMP 97.8; O2SAT 99
[2022-12-22] MEDS: oxyCODONE IR immediate release 5 MG PO SCH ×3 (05:00→20:34)
[2022-12-22 07:38] LABS: BASOPHILS % (AUTO) 0.3 % (0.0-2.0); EOSINOPHILS # (AUTO) 0.3 K/uL (0.0-0.7); EOSINOPHILS % (AUTO) 2.4 % (0.0-6.0); HEMATOCRIT 36 % (33-45); HEMOGLOBIN 10.8 g/dL (11.5-14.8); LYMPHOCYTES # (AUTO) 1.6 K/uL (0.8-4.8); LYMPHOCYTES % (AUTO) 13.7 % (20.0-44.0); MEAN CORPUSCULAR HEMOGLOBIN 30 PG (26.0-33.0); MEAN CORPUSCULAR HGB CONC 31 g/dl (31.0-36.0); MEAN CORPUSCULAR VOLUME 97 fL (82-100); MONOCYTES # (AUTO) 0.9 K/uL (0.1-1.30); MONOCYTES % (AUTO) 7.5 % (2.0-12.0); NEUTROPHILS # (AUTO) 9.2 K/uL (1.8-8.9); NEUTROPHILS % (AUTO) 76.1 % (43.0-81.0); PLATELET COUNT (AUTO) 184 K/uL (150-450); RED BLOOD CELL COUNT(AUTO) 3.66 MIL/uL (4.0-5.2); RED CELL DISTRIBUTION WIDTH 17.4 % (11.5-15.0)
[2022-12-22 08:00] VITALS: BP 96/63; TEMP 98; O2SAT 99
[2022-12-22 08:09] LABS: ALBUMIN 1.7 g/dL (3.4-5.0); BILIRUBIN,TOTAL 0.4 mg/dL (0.2-1.0); CALCIUM, SERUM 8.3 mg/dL (8.5-10.1); CREATININE 1.8 mg/dL (0.6-1.3); MAGNESIUM 1.9 mg/dL (1.8-2.4); POTASSIUM 3.3 mmol/L (3.5-5.1); TOTAL PROTEIN, SERUM 5.7 g/dL (6.4-8.2)
[2022-12-22] MEDS: PANTOPRAZOLE 40 MG TABLET.DR PO SCH (08:22)
[2022-12-22] MEDS: GABAPENTIN 400 MG CAPSULE PO SCH ×3 (09:30→17:53)
[2022-12-22] MEDS: MEROPENEM 500 MG in IV NS 0.9% 50 ML IV SCH ×2 (09:30→20:34)
[2022-12-22] MEDS: LACTULOSE 10 G/15 ML UDC (PYXIS) PO SCH ×2 (09:31→17:00)
[2022-12-22] MEDS: MEGESTROL ACETATE SUSP 400 MG/10 ML UDC PO SCH (09:31)
[2022-12-22] MEDS: ESCITALOPRAM OXALATE (10 MG) 10 MG TABLET PO SCH (09:31)
[2022-12-22] MEDS: CITRIC ACID/SODIUM CITRATE (BICITRA)15 ML UDC PO SCH ×4 (09:31→20:34)
[2022-12-22] MEDS ORDERED: POTASSIUM CL. PREMIX PERIPHER. 50 ML IV SCH (12:00)
[2022-12-22 16:02] VITALS: BP 90/53; TEMP 98.6; O2SAT 99
[2022-12-22] MEDS ORDERED: NEUTRA PHOS 1 POWD.PACKET PO ONE (17:00)
[2022-12-22 20:00] VITALS: BP 91/55; TEMP 97.9; O2SAT 100
[2022-12-22] MEDS: IV D5/0.45 NACL 1,000 ML IV PRN (23:37)
[2022-12-23] VITALS: BP 94/61; TEMP 98.1; O2SAT 95
[2022-12-23 04:00] VITALS: BP 106/60; TEMP 98.2; O2SAT 99
[2022-12-23] MEDS: oxyCODONE IR immediate release 5 MG PO SCH ×3 (04:55→20:25)
[2022-12-23 08:00] VITALS: BP 105/60; TEMP 97.7; O2SAT 100
[2022-12-23] MEDS: PANTOPRAZOLE 40 MG TABLET.DR PO SCH (08:20)
[2022-12-23 08:42] LABS: BASOPHILS % (AUTO) 0.3 % (0.0-2.0); EOSINOPHILS # (AUTO) 0.3 K/uL (0.0-0.7); EOSINOPHILS % (AUTO) 2.5 % (0.0-6.0); HEMATOCRIT 38 % (33-45); HEMOGLOBIN 11.6 g/dL (11.5-14.8); LYMPHOCYTES # (AUTO) 1.3 K/uL (0.8-4.8); LYMPHOCYTES % (AUTO) 12.7 % (20.0-44.0); MEAN CORPUSCULAR HEMOGLOBIN 30 PG (26.0-33.0); MEAN CORPUSCULAR HGB CONC 30 g/dl (31.0-36.0); MEAN CORPUSCULAR VOLUME 98 fL (82-100); MONOCYTES # (AUTO) 0.8 K/uL (0.1-1.30); NEUTROPHILS % (AUTO) 76.5 % (43.0-81.0); PLATELET COUNT (AUTO) 181 K/uL (150-450); RED BLOOD CELL COUNT(AUTO) 3.93 MIL/uL (4.0-5.2); RED CELL DISTRIBUTION WIDTH 17.4 % (11.5-15.0); WHITE BLOOD COUNT (AUTO) 10.5 K/uL (4.3-11.0)
[2022-12-23 08:55] LABS: ALBUMIN 1.7 g/dL (3.4-5.0); BILIRUBIN,TOTAL 0.3 mg/dL (0.2-1.0); CALCIUM, SERUM 8.2 mg/dL (8.5-10.1); CREATININE 1.6 mg/dL (0.6-1.3); PHOSPHORUS 2.9 mg/dL (2.5-4.9); POTASSIUM 4.1 mmol/L (3.5-5.1)
[2022-12-23] MEDS: LACTULOSE 10 G/15 ML UDC (PYXIS) PO SCH ×2 (09:28→17:00)
[2022-12-23] MEDS: ESCITALOPRAM OXALATE (10 MG) 10 MG TABLET PO SCH (09:28)
[2022-12-23] MEDS: MEGESTROL ACETATE SUSP 400 MG/10 ML UDC PO SCH (09:28)
[2022-12-23] MEDS: MEROPENEM 500 MG in IV NS 0.9% 50 ML IV SCH ×2 (09:28→20:08)
[2022-12-23] MEDS: GABAPENTIN 400 MG CAPSULE PO SCH ×3 (09:29→17:29)
[2022-12-23] MEDS: CITRIC ACID/SODIUM CITRATE (BICITRA)15 ML UDC PO SCH ×4 (09:49→20:08)
[2022-12-23 16:00] VITALS: BP 84/47; TEMP 97.6; O2SAT 99
[2022-12-23 20:00] VITALS: BP 92/62; TEMP 97.9; O2SAT 99
[2022-12-24] VITALS: BP 84/56; TEMP 98.1; O2SAT 98
[2022-12-24 04:00] VITALS: BP 88/52; TEMP 98.2; O2SAT 98
[2022-12-24] MEDS: oxyCODONE IR immediate release 5 MG PO SCH ×2 (04:58→13:31)
[2022-12-24 06:40] LABS: CALCIUM, SERUM 8.2 mg/dL (8.5-10.1); CREATININE 1.7 mg/dL (0.6-1.3); POTASSIUM 3.2 mmol/L (3.5-5.1)
[2022-12-24 08:39] VITALS: BP 90/44; TEMP 97.7; O2SAT 98
[2022-12-24] MEDS: MEROPENEM 500 MG in IV NS 0.9% 50 ML IV SCH (08:47)
[2022-12-24] MEDS: CITRIC ACID/SODIUM CITRATE (BICITRA)15 ML UDC PO SCH ×2 (08:47→13:32)
[2022-12-24] MEDS: PANTOPRAZOLE 40 MG TABLET.DR PO SCH (08:47)
[2022-12-24] MEDS: LACTULOSE 10 G/15 ML UDC (PYXIS) PO SCH (08:55)
[2022-12-24] MEDS: GABAPENTIN 400 MG CAPSULE PO SCH ×2 (08:55→13:31)
[2022-12-24] MEDS: MEGESTROL ACETATE SUSP 400 MG/10 ML UDC PO SCH (08:55)
[2022-12-24] MEDS: ESCITALOPRAM OXALATE (10 MG) 10 MG TABLET PO SCH (08:55)
[2022-12-24] MEDS: POTASSIUM CL. PREMIX PERIPHER. 50 ML IV SCH ×2 (11:57→13:28)
[2022-12-24 12:00] VITALS: BP 87/56; TEMP 97.8; O2SAT 98
[2022-12-24] MEDS ORDERED: MEROPENEM 1 G in IV NS 0.9% 100 ML IV SCH (21:00)
== END 2022-12-24 16:20 | DRG 871 ==
LOC: ER 13:32 → TELE 19:36
PROVIDERS: ADMIT Student in an Organized Health Care Education/Training Program; ATTEND Student in an Organized Health Care Education/Training Program
PROC: 05HA33Z Insertion of Infusion Device into Left Brachial Vein, Percutaneous Approach (ICD-10-PCS; principal; 2022-12-14)
PROC: 05HA33Z Insertion of Infusion Device into Left Brachial Vein, Percutaneous Approach (ICD-10-PCS; 2022-12-14)
DX: A41.9 Sepsis, unspecified organism (principal); G93.41 Metabolic encephalopathy; N39.0 Urinary tract infection, site not specified; E87.1 Hypo-osmolality and hyponatremia; N17.9 Acute kidney failure, unspecified; E44.1 Mild protein-calorie malnutrition; D68.59 Other primary thrombophilia; E87.20 Acidosis, unspecified; Z16.24 Resistance to multiple antibiotics; R31.9 Hematuria, unspecified; B96.1 Klebsiella pneumoniae [K. pneumoniae] as the cause of diseases classified elsewhere; R31.0 Gross hematuria; N20.0 Calculus of kidney; Z90.6 Acquired absence of other parts of urinary tract; Z93.6 Other artificial openings of urinary tract status; Z79.01 Long term (current) use of anticoagulants; K57.30 Diverticulosis of large intestine without perforation or abscess without bleeding; R26.2 Difficulty in walking, not elsewhere classified; J44.9 Chronic obstructive pulmonary disease, unspecified; G89.4 Chronic pain syndrome; Z79.891 Long term (current) use of opiate analgesic; Z88.2 Allergy status to sulfonamides; Z88.9 Allergy status to unspecified drugs, medicaments and biological substances; L89.156 Pressure-induced deep tissue damage of sacral region; F32.A Depression, unspecified; K80.20 Calculus of gallbladder without cholecystitis without obstruction; E87.8 Other disorders of electrolyte and fluid balance, not elsewhere classified; E87.6 Hypokalemia; E86.0 Dehydration; R65.20 Severe sepsis without septic shock; E66.01 Morbid (severe) obesity due to excess calories; Z68.33 Body mass index [BMI] 33.0-33.9, adult; Z85.51 Personal history of malignant neoplasm of bladder
CPT/HCPCS: 36410; 36415; 70450-TC; 71045-TC; 80048-TC; 80053-TC; 80076-TC; 80202-TC; 81001; 82140-TC; 82550-TC; 82570-TC; 82962-TC; 83605-TC; 83735-TC; 83970; 84100-TC; 84155; 84165; 84295-TC; 84300-TC; 84484-TC; 85025-TC; 85730-TC; 87040-TC; 87081-TC; 87086-TC; 92526; 92611-TC; 97110-TC; A4216; A4223; A6403; G0378; J0692; J0696; J1956; J2185; J2270; J3370; J3480; J3490; J7030; J7040; J7042; J7060; Q0177

== ENCOUNTER 2024-07-02 15:25 | Inpatient (IN) | payer MEDICARE, OTHER ==
[~2024-07-02] VITALS: Ht 167.6 cm; Wt 102.1 kg
[~2024-07-02 15:25] MED LIST: ACET-868 PO; APIX2.5T PO; ESCI10TA PO; FURO-144 PO; GABA800T11 PO; HYDR-3895 PO; HYDR2TAB7 PO; LIDO10VI IJ; OXYC20TA42 PO; POTA8TAB3 PO; TRIA80CR12 TP
[2024-07-02] MEDS ORDERED: IV NS 0.9% 1,000 ML BAG IV ONE (15:30)
[2024-07-02] MEDS: IV NS 0.9% 500 ML BAG IV ONE ×2 (16:00→16:45)
[2024-07-02 16:02] LABS: BASOPHILS # (AUTO) 0.2 K/uL (0.0-0.2); BASOPHILS % (AUTO) 1.5 % (0.0-2.0); EOSINOPHILS # (AUTO) 0.8 K/uL (0.0-0.7); EOSINOPHILS % (AUTO) 5.9 % (0.0-6.0); HEMATOCRIT 46 % (33-45); HEMOGLOBIN 14.8 g/dL (11.5-14.8); LYMPHOCYTES # (AUTO) 1.9 K/uL (0.8-4.8); LYMPHOCYTES % (AUTO) 14.2 % (20.0-44.0); MEAN CORPUSCULAR HEMOGLOBIN 31 PG (26.0-33.0); MEAN CORPUSCULAR HGB CONC 33 g/dl (31.0-36.0); MEAN CORPUSCULAR VOLUME 95 fL (82-100); MONOCYTES # (AUTO) 0.6 K/uL (0.1-1.30); MONOCYTES % (AUTO) 4.1 % (2.0-12.0); NEUTROPHILS # (AUTO) 10.1 K/uL (1.8-8.9); NEUTROPHILS % (AUTO) 74.3 % (43.0-81.0); PLATELET COUNT (AUTO) 326 K/uL (150-450); RED BLOOD CELL COUNT(AUTO) 4.78 MIL/uL (4.0-5.2); WHITE BLOOD COUNT (AUTO) 13.7 K/uL (4.3-11.0)
[2024-07-02] MEDS ORDERED: ASCO-352 PO (16:14)
[2024-07-02] MEDS ORDERED: METO100T14 PO (16:14)
[2024-07-02] MEDS ORDERED: DIPH1TAB PO (16:14)
[2024-07-02] MEDS ORDERED: MAGN400O6 PO (16:14)
[2024-07-02] MEDS ORDERED: NA P133E RC (16:14)
[2024-07-02] MEDS ORDERED: PRED5TAB PO (16:14)
[2024-07-02] MEDS ORDERED: MULT-213 PO (16:14)
[2024-07-02] MEDS ORDERED: BISA10SU11 RC (16:14)
[2024-07-02] MEDS ORDERED: AMIO200T5 PO (16:14)
[2024-07-02] MEDS ORDERED: HYDR-500 PO (16:14)
[2024-07-02] MEDS ORDERED: OXYC10TA49 PO (16:14)
[2024-07-02] MEDS ORDERED: DOCU100T2 PO (16:14)
[2024-07-02] MEDS ORDERED: APIX5TAB PO (16:14)
[2024-07-02] MEDS ORDERED: TERB250T52 PO (16:14)
[2024-07-02] MEDS ORDERED: MELA3TAB41 PO (16:14)
[2024-07-02] MEDS ORDERED: PANT40TA2 PO (16:14)
[2024-07-02] MEDS ORDERED: ESCI5TAB PO (16:14)
[2024-07-02] MEDS ORDERED: TRAZ-182 PO (16:14)
[2024-07-02] MEDS: CEFEPIME 1 GM in IV D5W 50 ML IV ONE (16:15)
[2024-07-02 16:17] LABS: LACTIC ACID 1.9 mmol/L (0.4-2.0)
[2024-07-02 16:54] LABS: INR 1.18 (0.91-1.10)
[2024-07-02 16:57] LABS: CARBON DIOXIDE 28 mmol/L (21-32); CHLORIDE 99 mmol/L (98-107); CREATININE 1.5 mg/dL (0.6-1.3); GLUCOSE 123 mg/dL (74-106); POTASSIUM 3.5 mmol/L (3.5-5.1); SODIUM SERUM 131 mmol/L (136-145); UREA NITROGEN, BLOOD 28 mg/dL (7-18)
[2024-07-02] MEDS: VANCOMYCIN 1 GM in IV D5W 250 ML IV ONE (17:00)
[2024-07-02] MEDS: FUROSEMIDE 40 MG TABLET PO SCH (17:00)
[2024-07-02] MEDS ORDERED: hydrALAZINE HCL IV 20 MG VIAL IV PRN (17:00)
[2024-07-02] MEDS ORDERED: ACETAMINOPHEN 325 MG TABLET PO PRN (17:00)
[2024-07-02] MEDS ORDERED: ONDANSETRON HCL/PF 4 MG/2 ML VIAL IVP PRN (17:00)
[2024-07-02 17:02] LABS: ALANINE AMINOTRANSFERASE 9 U/L (12-78); ALBUMIN 1.8 g/dL (3.4-5.0); ALKALINE PHOSPHATASE 125 U/L (46-116); ASPARTATE AMINOTRANSFERASE 21 U/L (15-37); BILIRUBIN,DIRECT 0.2 mg/dL (0.0-0.2); BILIRUBIN,TOTAL 0.4 mg/dL (0.2-1.0); TOTAL PROTEIN, SERUM 6.3 g/dL (6.4-8.2)
[2024-07-02 17:30] LABS: APPEARANCE,URINE Turbid (CLEAR); BILIRUBIN,URINE Negative (NEGATIVE); BLOOD, URINE Negative Ery/uL (NEGATIVE); COLOR,URINE YELLOW (YELLOW); KETONES,URINE Negative (NEGATIVE); LEUKOCYTE ESTERASE ,URINE Moderate (NEGATIVE); PH,URINE 8.5 (5.0-8.0); PROTEIN,URINE 30 mg/dl (NEGATIVE); UGLUCOSE Negative (NEGATIVE); UROBILINOGEN,URINE 0.2 EU/dL (0.2)
[2024-07-02 17:34] LABS: NITRITE, URINE NEGATIVE (NEGATIVE)
[2024-07-02 18:00] VITALS: BP 96/58; TEMP 98.4; O2SAT 95
[2024-07-02] MEDS: METOPROLOL TARTRATE 50 MG TABLET PO SCH (18:00)
[2024-07-02 18:02] LABS: ADD URINE CULTURE YES; BACTERIA,URINE Many /HPF (None Seen); URINE AMORPHOUS PHOSPHATES Few /HPF (None Seen)
[2024-07-02] MEDS: APIXABAN 5 MG TABLET PO SCH (18:51)
[2024-07-02] MEDS: IV NS 0.9% 1,000 ML IV ONE (18:51)
[2024-07-02 20:29] VITALS: BP 104/59; TEMP 98.1; O2SAT 97
[2024-07-02] MEDS: VANCOMYCIN 1 GM in IV D5W 250ml IV ONE (20:55)
[2024-07-02] MEDS: HEPARIN SODIUM, PORCINE 5000 UNITS/1 ML VIAL SQ SCH (21:02)
[2024-07-02] MEDS: oxyCODONE IR immediate release 5 MG TABLET PO PRN (21:03)
[2024-07-02] MEDS: TRAZODONE 50 MG TABLET PO SCH (21:19)
[2024-07-03 05:07] VITALS: BP 94/52; TEMP 97.5; O2SAT 93
[2024-07-03 07:30] LABS: ALBUMIN 1.9 g/dL (3.4-5.0); BILIRUBIN,TOTAL 0.5 mg/dL (0.2-1.0); CALCIUM, SERUM 8.4 mg/dL (8.5-10.1); CREATININE 1.4 mg/dL (0.6-1.3); MAGNESIUM 1.9 mg/dL (1.8-2.4); PHOSPHORUS 3.2 mg/dL (2.5-4.9); POTASSIUM 3.5 mmol/L (3.5-5.1); TOTAL PROTEIN, SERUM 6.8 g/dL (6.4-8.2)
[2024-07-03 07:32] LABS: BASOPHILS # (AUTO) 0.1 K/uL (0.0-0.2); BASOPHILS % (AUTO) 0.6 % (0.0-2.0); EOSINOPHILS # (AUTO) 1.1 K/uL (0.0-0.7); EOSINOPHILS % (AUTO) 8.3 % (0.0-6.0); HEMATOCRIT 46 % (33-45); HEMOGLOBIN 14.5 g/dL (11.5-14.8); LYMPHOCYTES # (AUTO) 3.1 K/uL (0.8-4.8); LYMPHOCYTES % (AUTO) 23.4 % (20.0-44.0); MEAN CORPUSCULAR HEMOGLOBIN 30 PG (26.0-33.0); MEAN CORPUSCULAR HGB CONC 31 g/dl (31.0-36.0); MEAN CORPUSCULAR VOLUME 97 fL (82-100); MONOCYTES # (AUTO) 0.9 K/uL (0.1-1.30); MONOCYTES % (AUTO) 6.9 % (2.0-12.0); NEUTROPHILS % (AUTO) 60.8 % (43.0-81.0); PLATELET COUNT (AUTO) 282 K/uL (150-450); RED BLOOD CELL COUNT(AUTO) 4.76 MIL/uL (4.0-5.2); WHITE BLOOD COUNT (AUTO) 13.2 K/uL (4.3-11.0)
[2024-07-03 08:00] VITALS: BP 107/62; TEMP 97.5; O2SAT 93
[2024-07-03] MEDS: PANTOPRAZOLE 40 MG TABLET.DR PO SCH (08:15)
[2024-07-03] MEDS: DOCUSATE SODIUM 100 MG CAPSULE PO SCH (08:16)
[2024-07-03] MEDS: AMIODARONE HCL 200 MG TABLET PO SCH (08:19)
[2024-07-03] MEDS: GABAPENTIN 400 MG CAPSULE PO SCH (08:19)
[2024-07-03] MEDS: ASCORBIC ACID 500 MG TABLET PO SCH (08:20)
[2024-07-03] MEDS: ESCITALOPRAM OXALATE (10 MG) 10 MG TABLET PO SCH (08:20)
[2024-07-03] MEDS: TERBINAFINE HCL 250 MG TABLET PO SCH (08:27)
[2024-07-03] MEDS: predniSONE 5 MG TABLET PO SCH (08:27)
[2024-07-03] MEDS: THERAHONEY GEL 1.5 OZ TUBE TP SCH (09:44)
[2024-07-03] MEDS: CLOTRIMAZOLE 1% 15 GM TUBE TP SCH (09:45)
[2024-07-03] MEDS: CEFEPIME 1 GM in IV D5W 50 ML IV SCH (15:02)
[2024-07-03 16:00] VITALS: BP 93/65; TEMP 97.7; O2SAT 98
[2024-07-03] MEDS ORDERED: BUPIVACAINE 0.5 % PF 150 MG/30 ML VIAL ONE (16:00)
[2024-07-03] MEDS ORDERED: LIDOCAINE HCL/MPF 1% 30 ML VIAL IJ ONE (16:00)
[2024-07-03 16:17] LABS: CREATININE, URINE 67.7 MG/DL (30.0-125.0)
[2024-07-03] MEDS ORDERED: FENTANYL PF 100MCG/2ML AMPUL ONE (16:53)
[2024-07-03] MEDS ORDERED: MIDAZOLAM HCL 2 MG/2ML VIAL ONE (17:09)
[2024-07-03] MEDS ORDERED: BACITRACIN ZINC OINT (15 GM) 15 GM TUBE TP ONE (17:23)
[2024-07-03] MEDS ORDERED: VANCOMYCIN 1 GM VIAL ONE (17:23)
[2024-07-03 18:10] VITALS: BP 94/58; TEMP 97.6; O2SAT 97
[2024-07-03] MEDS ORDERED: VANCOMYCIN HCL 1.25 GM in IV D5W 250 ML IV SCH (19:00)
[2024-07-03] MEDS: MORPHINE SULFATE INJ 2 MG/ML DISP.SYRIN IV PRN (19:25)
[2024-07-03 20:00] VITALS: BP 93/69; TEMP 98.1; O2SAT 96
[2024-07-03] MEDS ORDERED: VANCOMYCIN 1 GM in IV D5W 250 ML IV SCH (20:00)
[2024-07-03] MEDS: VANCOMYCIN HCL 1.25 GM in IV D5W 250 ML IV SCH (20:14)
[2024-07-04 04:00] VITALS: BP 93/57; TEMP 97.5; O2SAT 97
[2024-07-04 06:43] LABS: BASOPHILS # (AUTO) 0.1 K/uL (0.0-0.2); BASOPHILS % (AUTO) 0.6 % (0.0-2.0); EOSINOPHILS # (AUTO) 0.7 K/uL (0.0-0.7); EOSINOPHILS % (AUTO) 6.6 % (0.0-6.0); HEMATOCRIT 43 % (33-45); HEMOGLOBIN 13.6 g/dL (11.5-14.8); LYMPHOCYTES # (AUTO) 2.1 K/uL (0.8-4.8); LYMPHOCYTES % (AUTO) 21.5 % (20.0-44.0); MEAN CORPUSCULAR HEMOGLOBIN 31 PG (26.0-33.0); MEAN CORPUSCULAR HGB CONC 32 g/dl (31.0-36.0); MEAN CORPUSCULAR VOLUME 98 fL (82-100); MONOCYTES # (AUTO) 0.5 K/uL (0.1-1.30); MONOCYTES % (AUTO) 5.5 % (2.0-12.0); NEUTROPHILS # (AUTO) 6.5 K/uL (1.8-8.9); NEUTROPHILS % (AUTO) 65.8 % (43.0-81.0); PLATELET COUNT (AUTO) 296 K/uL (150-450); RED BLOOD CELL COUNT(AUTO) 4.42 MIL/uL (4.0-5.2); RED CELL DISTRIBUTION WIDTH 15.5 % (11.5-15.0); WHITE BLOOD COUNT (AUTO) 9.9 K/uL (4.3-11.0)
[2024-07-04 07:04] LABS: ALBUMIN 1.8 g/dL (3.4-5.0); BILIRUBIN,TOTAL 0.3 mg/dL (0.2-1.0); CALCIUM, SERUM 8.3 mg/dL (8.5-10.1); CREATININE 1.4 mg/dL (0.6-1.3); MAGNESIUM 1.9 mg/dL (1.8-2.4); PHOSPHORUS 3.8 mg/dL (2.5-4.9); POTASSIUM 3.6 mmol/L (3.5-5.1); TOTAL PROTEIN, SERUM 6.2 g/dL (6.4-8.2)
[2024-07-04 08:00] VITALS: BP 95/54; TEMP 97.5; O2SAT 100
[2024-07-04] MEDS ORDERED: MIDODRINE HCL (5MG) 5 MG TABLET PO PRN (09:30)
[2024-07-04] MEDS: Z GUARD REMEDY 4 OZ OINT TP PRN (09:44)
[2024-07-04 12:00] VITALS: BP 108/59; TEMP 98; O2SAT 97
[2024-07-04 16:03] VITALS: BP 98/55; TEMP 97.5; O2SAT 95
[2024-07-04 20:00] VITALS: BP 98/63; TEMP 98.2; O2SAT 92
[2024-07-04] MEDS: MUPIROCIN OINT 2% 22 GM TUBE NS SCH (21:15)
[2024-07-05] VITALS: BP 96/53; TEMP 98.6; O2SAT 92
[2024-07-05 04:00] VITALS: BP 102/65; TEMP 98.1; O2SAT 96
[2024-07-05 07:22] LABS: BASOPHILS # (AUTO) 0.1 K/uL (0.0-0.2); BASOPHILS % (AUTO) 0.9 % (0.0-2.0); EOSINOPHILS # (AUTO) 0.6 K/uL (0.0-0.7); EOSINOPHILS % (AUTO) 7.5 % (0.0-6.0); HEMATOCRIT 44 % (33-45); LYMPHOCYTES % (AUTO) 26.2 % (20.0-44.0); MEAN CORPUSCULAR HEMOGLOBIN 31 PG (26.0-33.0); MEAN CORPUSCULAR HGB CONC 32 g/dl (31.0-36.0); MEAN CORPUSCULAR VOLUME 98 fL (82-100); MONOCYTES # (AUTO) 0.6 K/uL (0.1-1.30); MONOCYTES % (AUTO) 7.6 % (2.0-12.0); NEUTROPHILS # (AUTO) 4.4 K/uL (1.8-8.9); NEUTROPHILS % (AUTO) 57.8 % (43.0-81.0); PLATELET COUNT (AUTO) 287 K/uL (150-450); RED BLOOD CELL COUNT(AUTO) 4.49 MIL/uL (4.0-5.2); RED CELL DISTRIBUTION WIDTH 14.9 % (11.5-15.0); WHITE BLOOD COUNT (AUTO) 7.6 K/uL (4.3-11.0)
[2024-07-05 07:48] LABS: CALCIUM, SERUM 8.5 mg/dL (8.5-10.1); CREATININE 1.3 mg/dL (0.6-1.3); MAGNESIUM 1.9 mg/dL (1.8-2.4); PHOSPHORUS 3.9 mg/dL (2.5-4.9); POTASSIUM 4.1 mmol/L (3.5-5.1)
[2024-07-05 08:00] VITALS: BP 107/56; TEMP 97.5; O2SAT 100
[2024-07-05 08:11] LABS: PTH, INTACT 83 pg/mL (15-65)
[2024-07-05] MEDS: AMIODARONE HCL 200 MG TABLET PO SCH (08:55)
[2024-07-05] MEDS: VANCOMYCIN 1 GM in IV D5W 250 ML IV SCH (13:09)
[2024-07-05 16:00] VITALS: BP 112/74; TEMP 97.4; O2SAT 100
[2024-07-05 20:00] VITALS: BP 111/59; TEMP 99.1; O2SAT 98
[2024-07-06 04:00] VITALS: BP 130/59; TEMP 99; O2SAT 97
[2024-07-06 06:50] LABS: CALCIUM, SERUM 8.3 mg/dL (8.5-10.1); CREATININE 1.3 mg/dL (0.6-1.3); POTASSIUM 3.9 mmol/L (3.5-5.1)
[2024-07-06] MEDS: NALOXONE HCL 0.4 MG/ML AMPUL ONE (10:55)
[2024-07-06 12:23] VITALS: BP 126/68; TEMP 98.3; O2SAT 98
[2024-07-06 20:00] VITALS: BP 113/72; TEMP 98.6; O2SAT 99
[2024-07-07 04:00] VITALS: BP 114/60; TEMP 98.4; O2SAT 99
[2024-07-07] MEDS ORDERED: LINEZOLID 600 MG TABLET PO SCH (09:00)
[2024-07-07] MEDS: DAPTOMYCIN 500 MG in IV NS 0.9% 50 ML IV SCH (09:11)
[2024-07-07 11:11] LABS: CALCIUM, SERUM 8.2 mg/dL (8.5-10.1); CREATININE 1.1 mg/dL (0.6-1.3); POTASSIUM 3.6 mmol/L (3.5-5.1)
[2024-07-07] MEDS ORDERED: AMIO200T5 PO (12:37)
[2024-07-07] MEDS ORDERED: LINE600T12 PO (12:37)
[2024-07-07] MEDS ORDERED: MIDO5TAB4 PO (12:37)
[2024-07-07 13:36] VITALS: BP 124/64; TEMP 98.5; O2SAT 98
[2024-07-07 16:00] VITALS: BP 136/72; TEMP 97.7; O2SAT 98
== END 2024-07-07 16:52 | disposition home health service (06) | DRG 853 ==
LOC: ER 15:30 → MEDSG1 17:59 → TELE1 07-04 11:02 → MEDSG1 07-05 08:39
PROVIDERS: ADMIT Internal Medicine; ATTEND Internal Medicine
PROC: 0HRMXK3 Replacement of Right Foot Skin with Nonautologous Tissue Substitute, Full Thickness, External Approach (ICD-10-PCS; 2024-07-03)
PROC: 0Y6P0Z1 Detachment at Right 1st Toe, High, Open Approach (ICD-10-PCS; principal; 2024-07-03 17:00)
DX: A41.9 Sepsis, unspecified organism (principal); L89.323 Pressure ulcer of left buttock, stage 3; E44.1 Mild protein-calorie malnutrition; M86.171 Other acute osteomyelitis, right ankle and foot; T79.7XXA Traumatic subcutaneous emphysema, initial encounter; E87.1 Hypo-osmolality and hyponatremia; N17.9 Acute kidney failure, unspecified; N39.0 Urinary tract infection, site not specified; I70.268 Atherosclerosis of native arteries of extremities with gangrene, other extremity; I13.0 Hypertensive heart and chronic kidney disease with heart failure and stage 1 through stage 4 chronic kidney disease, or unspecified chronic kidney disease; L03.031 Cellulitis of right toe; N18.9 Chronic kidney disease, unspecified; I48.91 Unspecified atrial fibrillation; L98.494 Non-pressure chronic ulcer of skin of other sites with necrosis of bone; I50.9 Heart failure, unspecified; J44.9 Chronic obstructive pulmonary disease, unspecified; M89.8X9 Other specified disorders of bone, unspecified site; Z87.891 Personal history of nicotine dependence; Z93.6 Other artificial openings of urinary tract status; R26.2 Difficulty in walking, not elsewhere classified; G47.33 Obstructive sleep apnea (adult) (pediatric); E88.09 Other disorders of plasma-protein metabolism, not elsewhere classified; E66.01 Morbid (severe) obesity due to excess calories; Z88.2 Allergy status to sulfonamides; Z91.048 Other nonmedicinal substance allergy status; Z79.01 Long term (current) use of anticoagulants; Z79.899 Other long term (current) drug therapy; B95.2 Enterococcus as the cause of diseases classified elsewhere; Z87.440 Personal history of urinary (tract) infections; Z87.442 Personal history of urinary calculi; R74.01 Elevation of levels of liver transaminase levels; R00.1 Bradycardia, unspecified; L98.9 Disorder of the skin and subcutaneous tissue, unspecified
CPT/HCPCS: 36415; 71045-TC; 73630-TC; 76770-TC; 80048-TC; 80053-TC; 80076-TC; 80202-TC; 81001; 82550-TC; 82570-TC; 83605-TC; 83735-TC; 83970; 84100-TC; 84155; 84165; 84300-TC; 85025-TC; 85730-TC; 86850-TC; 87040-TC; 87081-TC; 87086-TC; 93307-TC; A2007; A4223; A6209; G0378; J0692; J0878; J1644; J2250; J2270; J2310; J2704; J3010; J3370; J3490; J7030; J7060; J7512

== ENCOUNTER 2024-07-16 17:16 | Inpatient (IN) | payer MEDICARE, OTHER ==
[~2024-07-16] VITALS: Ht 162.6 cm; Wt 85.7 kg
[2024-07-16] MEDS: POTASSIUM CHLORIDE 20 MEQ TAB.PRT.SR PO ONE (01:30)
[~2024-07-16 17:16] MED LIST changes: +AMIO200T5 PO; -APIX2.5T PO; +APIX5TAB PO; +ASCO-352 PO; +BISA10SU11 RC; +DIPH1TAB PO; +DOCU100T2 PO; -ESCI10TA PO; +ESCI5TAB PO; -HYDR-3895 PO; +HYDR-500 PO; -HYDR2TAB7 PO; -LIDO10VI IJ; +LINE600T12 PO; +MAGN400O6 PO; +MELA3TAB41 PO; +METO100T14 PO; +MIDO5TAB4 PO; +MULT-213 PO; +NA P133E RC; +OXYC10TA49 PO; -OXYC20TA42 PO; +PANT40TA2 PO; -POTA8TAB3 PO; +PRED5TAB PO; +TERB250T52 PO; +TRAZ-182 PO; -TRIA80CR12 TP
[2024-07-16] MEDS: IV NS 0.9% 1,000 ML BAG IV ONE ×2 (18:30→22:27)
[2024-07-16 20:04] LABS: BASOPHILS # (AUTO) 0.1 K/uL (0.0-0.2); BASOPHILS % (AUTO) 0.5 % (0.0-2.0); EOSINOPHILS # (AUTO) 0.4 K/uL (0.0-0.7); EOSINOPHILS % (AUTO) 2.8 % (0.0-6.0); HEMATOCRIT 42 % (33-45); HEMOGLOBIN 13.3 g/dL (11.5-14.8); LYMPHOCYTES # (AUTO) 2.7 K/uL (0.8-4.8); LYMPHOCYTES % (AUTO) 19.2 % (20.0-44.0); MEAN CORPUSCULAR HEMOGLOBIN 31 PG (26.0-33.0); MEAN CORPUSCULAR HGB CONC 32 g/dl (31.0-36.0); MEAN CORPUSCULAR VOLUME 97 fL (82-100); MONOCYTES # (AUTO) 0.4 K/uL (0.1-1.30); MONOCYTES % (AUTO) 2.8 % (2.0-12.0); NEUTROPHILS # (AUTO) 10.5 K/uL (1.8-8.9); NEUTROPHILS % (AUTO) 74.7 % (43.0-81.0); PLATELET COUNT (AUTO) 219 K/uL (150-450); RED BLOOD CELL COUNT(AUTO) 4.36 MIL/uL (4.0-5.2); RED CELL DISTRIBUTION WIDTH 15.3 % (11.5-15.0); WHITE BLOOD COUNT (AUTO) 14.1 K/uL (4.3-11.0)
[2024-07-16 20:18] LABS: CALCIUM, SERUM 8.8 mg/dL (8.5-10.1); CREATININE 1.4 mg/dL (0.6-1.3); POTASSIUM 3.1 mmol/L (3.5-5.1)
[2024-07-16 20:23] LABS: ALBUMIN 2.3 g/dL (3.4-5.0); BILIRUBIN,DIRECT 0.1 mg/dL (0.0-0.2); BILIRUBIN,TOTAL 0.4 mg/dL (0.2-1.0); INR 1.16 (0.91-1.10); PARTIAL THROMBOPLASTIN TIME 36.7 SEC (24.3-34.3); PROTHROMBIN TIME 12.2 SECS (9.2-11.1); TOTAL PROTEIN, SERUM 6.8 g/dL (6.4-8.2)
[2024-07-16] MEDS: VANCOMYCIN 1 GM in IV D5W 250 ML IV ONE (21:00)
[2024-07-16] MEDS ORDERED: VANCOMYCIN 1 GM /D5W 250 ML PB IV ONE (21:18)
[2024-07-16] MEDS ORDERED: CEFEPIME 1 GM VIAL ONE (21:18)
[2024-07-16] MEDS: CEFEPIME 1 GM in IV D5W 50 ML IV ONE (21:34)
[2024-07-16] MEDS ORDERED: MAG HYDROX/AL HYDROX/SIMETH 30 ML UDC PO PRN (22:00)
[2024-07-16] MEDS ORDERED: MAGNESIUM HYDROXIDE 30 ML UDC PO PRN ×2 (22:00)
[2024-07-16] MEDS ORDERED: ACETAMINOPHEN 325 MG TABLET PO PRN (22:00)
[2024-07-16] MEDS ORDERED: BISACODYL SUPP (10 MG) 10 MG/SUPP.RECT SUPP.RECT RC PRN (22:00)
[2024-07-16] MEDS ORDERED: CEFEPIME 1 GM in IV D5W 50 ML IV SCH (22:00)
[2024-07-16] MEDS ORDERED: ONDANSETRON HCL/PF 4 MG/2 ML VIAL IVP PRN (22:00)
[2024-07-17 00:55] VITALS: BP 103/57; TEMP 98.2; O2SAT 99
[2024-07-17] MEDS: TRAZODONE 50 MG TABLET PO SCH (01:30)
[2024-07-17] MEDS ORDERED: POTASSIUM CHLORIDE 20 MEQ TAB.PRT.SR PO ONE (03:30)
[2024-07-17 04:43] VITALS: BP 92/65; TEMP 98.1; O2SAT 98
[2024-07-17] MEDS: POTASSIUM CHLORIDE 20 MEQ TAB.PRT.SR PO ONE (05:05)
[2024-07-17] MEDS: IV NS 0.9% 1,000 ML IV PRN (05:36)
[2024-07-17 07:41] LABS: BASOPHILS # (AUTO) 0.1 K/uL (0.0-0.2); BASOPHILS % (AUTO) 0.8 % (0.0-2.0); EOSINOPHILS # (AUTO) 0.4 K/uL (0.0-0.7); EOSINOPHILS % (AUTO) 2.9 % (0.0-6.0); HEMATOCRIT 43 % (33-45); HEMOGLOBIN 13.5 g/dL (11.5-14.8); LYMPHOCYTES # (AUTO) 2.8 K/uL (0.8-4.8); LYMPHOCYTES % (AUTO) 22.3 % (20.0-44.0); MEAN CORPUSCULAR HEMOGLOBIN 31 PG (26.0-33.0); MEAN CORPUSCULAR HGB CONC 31 g/dl (31.0-36.0); MEAN CORPUSCULAR VOLUME 98 fL (82-100); MONOCYTES # (AUTO) 0.6 K/uL (0.1-1.30); MONOCYTES % (AUTO) 4.6 % (2.0-12.0); NEUTROPHILS # (AUTO) 8.7 K/uL (1.8-8.9); NEUTROPHILS % (AUTO) 69.4 % (43.0-81.0); PLATELET COUNT (AUTO) 175 K/uL (150-450); RED BLOOD CELL COUNT(AUTO) 4.41 MIL/uL (4.0-5.2); RED CELL DISTRIBUTION WIDTH 15.6 % (11.5-15.0); WHITE BLOOD COUNT (AUTO) 12.6 K/uL (4.3-11.0)
[2024-07-17 08:00] VITALS: BP 105/88; TEMP 98.1; O2SAT 98
[2024-07-17] MEDS: METOPROLOL TARTRATE 50 MG TABLET PO SCH (08:00)
[2024-07-17 08:08] LABS: CALCIUM, SERUM 8.4 mg/dL (8.5-10.1); CREATININE 1.2 mg/dL (0.6-1.3); MAGNESIUM 1.9 mg/dL (1.8-2.4); PHOSPHORUS 3.5 mg/dL (2.5-4.9); POTASSIUM 3.7 mmol/L (3.5-5.1)
[2024-07-17] MEDS: ASCORBIC ACID 500 MG TABLET PO SCH (08:18)
[2024-07-17] MEDS: MULTIVITAMINS,THERAGRAN 1 UDTAB TABLET PO SCH (08:18)
[2024-07-17] MEDS: ESCITALOPRAM OXALATE (10 MG) 10 MG TABLET PO SCH (08:19)
[2024-07-17] MEDS: GABAPENTIN 400 MG CAPSULE PO SCH (08:19)
[2024-07-17] MEDS: PANTOPRAZOLE 40 MG TABLET.DR PO SCH (08:19)
[2024-07-17] MEDS: DOCUSATE SODIUM 100 MG CAPSULE PO SCH (08:19)
[2024-07-17] MEDS: TERBINAFINE HCL 250 MG TABLET PO SCH (08:19)
[2024-07-17] MEDS: oxyCODONE IR immediate release 5 MG TABLET PO PRN (08:37)
[2024-07-17] MEDS: HEPARIN SODIUM, PORCINE 5000 UNITS/1 ML VIAL SQ SCH (08:42)
[2024-07-17] MEDS ORDERED: DIPH25TA23 PO (08:56)
[2024-07-17] MEDS: CEFEPIME 2 GM in IV D5W 100 ML IV SCH (09:56)
[2024-07-17] MEDS: CLOTRIMAZOLE/BETAMETASONE DIPROPIONATE 15 GM TUBE TP SCH (10:05)
[2024-07-17 12:00] VITALS: BP 96/63; TEMP 97.9; O2SAT 96
[2024-07-17] MEDS ORDERED: hydrOXYzine 10 MG TABLET PO PRN (12:30)
[2024-07-17] MEDS ORDERED: DIPHENOXYLATE HCL/ATROP SULF 1 UDTAB TABLET PO PRN (12:30)
[2024-07-17] MEDS ORDERED: NA PHOS,M-B/NA PHOS,DI-BA 1 EA ENEMA RC PRN (12:30)
[2024-07-17] MEDS ORDERED: diphenhydrAMINE HCL ELIX 25 MG/10 ML UDC PO PRN (12:30)
[2024-07-17] MEDS: MIDODRINE HCL (5MG) 5 MG TABLET PO PRN (12:33)
[2024-07-17] MEDS: ACETAMINOPHEN 325 MG TABLET PO PRN (12:50)
[2024-07-17 16:12] VITALS: BP 101/59; TEMP 98.2; O2SAT 97
[2024-07-17] MEDS: VANCOMYCIN HCL 1.25 GM in IV D5W 250 ML IV SCH (17:30)
[2024-07-17 20:00] VITALS: BP 107/64; TEMP 98.2; O2SAT 97
[2024-07-17] MEDS: LINEZOLID 600 MG TABLET PO SCH (20:34)
[2024-07-17] MEDS ORDERED: MELATONIN 3 MG TABLET PO SCH (22:00)
[2024-07-18 08:30] VITALS: BP 89/54; TEMP 98.1; O2SAT 97
[2024-07-18 08:41] LABS: CALCIUM, SERUM 8.5 mg/dL (8.5-10.1); CREATININE 1.4 mg/dL (0.6-1.3); POTASSIUM 3.8 mmol/L (3.5-5.1)
[2024-07-18] MEDS: predniSONE 5 MG TABLET PO SCH (09:00)
[2024-07-18] MEDS: AMIODARONE HCL 200 MG TABLET PO SCH (09:00)
[2024-07-18 16:00] VITALS: BP 102/54; TEMP 98.4; O2SAT 94
[2024-07-18] MEDS: Z GUARD REMEDY 4 OZ OINT TP PRN (16:47)
[2024-07-18] MEDS: APIXABAN 5 MG TABLET PO SCH (16:49)
[2024-07-18 20:00] VITALS: BP 106/59; TEMP 98.6; O2SAT 98
[2024-07-18] MEDS: HYDROMORPHONE 1 MG/1 ML DISP.SYRIN IV PRN (21:21)
[2024-07-19 06:50] LABS: CALCIUM, SERUM 8.6 mg/dL (8.5-10.1); CREATININE 1.4 mg/dL (0.6-1.3); POTASSIUM 3.9 mmol/L (3.5-5.1)
[2024-07-19 07:00] VITALS: BP 119/56; TEMP 97.4; O2SAT 94
[2024-07-19 16:00] VITALS: BP 128/62; TEMP 97.9; O2SAT 97
[2024-07-19 20:00] VITALS: BP 114/55; TEMP 98.6; O2SAT 95
[2024-07-20 07:58] LABS: CREATININE 1.3 mg/dL (0.6-1.3); POTASSIUM 3.9 mmol/L (3.5-5.1)
[2024-07-20 08:00] VITALS: BP 102/60; TEMP 97.9; O2SAT 96
[2024-07-20 16:00] VITALS: BP 119/69; TEMP 99.5; O2SAT 98
[2024-07-20 20:00] VITALS: BP 109/56; TEMP 98.4; O2SAT 96
[2024-07-21 08:00] VITALS: BP 106/40; TEMP 97.7; O2SAT 99
[2024-07-21 08:25] LABS: CALCIUM, SERUM 8.7 mg/dL (8.5-10.1); CREATININE 1.4 mg/dL (0.6-1.3); POTASSIUM 3.9 mmol/L (3.5-5.1)
[2024-07-21] MEDS ORDERED: LINE600T12 PO (10:54)
[2024-07-21] MEDS ORDERED: CLOTRIMAZOLE/BETAMETASONE DIPROPIONATE 15 GM TUBE TP SCH (12:00)
[2024-07-21 13:00] VITALS: BP 111/68
== END 2024-07-21 16:29 | DRG 919 ==
LOC: ER 17:25 → TELE 23:05 → MED 07-18 10:31
PROVIDERS: ADMIT Nurse Practitioner Acute Care; ATTEND Internal Medicine
DX: T81.89XA Other complications of procedures, not elsewhere classified, initial encounter (principal); N17.0 Acute kidney failure with tubular necrosis; D68.59 Other primary thrombophilia; M86.8X7 Other osteomyelitis, ankle and foot; I13.0 Hypertensive heart and chronic kidney disease with heart failure and stage 1 through stage 4 chronic kidney disease, or unspecified chronic kidney disease; E44.0 Moderate protein-calorie malnutrition; I48.20 Chronic atrial fibrillation, unspecified; E87.1 Hypo-osmolality and hyponatremia; I73.9 Peripheral vascular disease, unspecified; Y83.8 Other surgical procedures as the cause of abnormal reaction of the patient, or of later complication, without mention of misadventure at the time of the procedure; J44.9 Chronic obstructive pulmonary disease, unspecified; I50.9 Heart failure, unspecified; E11.22 Type 2 diabetes mellitus with diabetic chronic kidney disease; Z91.048 Other nonmedicinal substance allergy status; Z88.2 Allergy status to sulfonamides; Z79.01 Long term (current) use of anticoagulants; Z79.899 Other long term (current) drug therapy; M89.8X9 Other specified disorders of bone, unspecified site; M81.0 Age-related osteoporosis without current pathological fracture; E11.40 Type 2 diabetes mellitus with diabetic neuropathy, unspecified; L97.519 Non-pressure chronic ulcer of other part of right foot with unspecified severity; E11.621 Type 2 diabetes mellitus with foot ulcer; Z89.411 Acquired absence of right great toe; Z89.429 Acquired absence of other toe(s), unspecified side; Z87.891 Personal history of nicotine dependence; Z74.09 Other reduced mobility; Z68.32 Body mass index [BMI] 32.0-32.9, adult; E66.9 Obesity, unspecified; E88.09 Other disorders of plasma-protein metabolism, not elsewhere classified; Z74.01 Bed confinement status; E87.6 Hypokalemia; L98.9 Disorder of the skin and subcutaneous tissue, unspecified; L89.156 Pressure-induced deep tissue damage of sacral region; L03.031 Cellulitis of right toe; Y92.099 Unspecified place in other non-institutional residence as the place of occurrence of the external cause; E11.69 Type 2 diabetes mellitus with other specified complication; N18.2 Chronic kidney disease, stage 2 (mild); R19.7 Diarrhea, unspecified; F32.A Depression, unspecified; L76.22 Postprocedural hemorrhage of skin and subcutaneous tissue following other procedure
CPT/HCPCS: 36415; 71045-TC; 73700-TC; 80048-TC; 80076-TC; 83735-TC; 84100-TC; 85025-TC; 85730-TC; 87040-TC; 87045-TC; 87081-TC; A4223; A6403; G0378; J0692; J1171; J1644; J3370; J3490; J7030; J7060; J7512

== ENCOUNTER 2024-07-29 12:01 | Inpatient (IN) | payer MEDICARE, OTHER ==
[~2024-07-29] VITALS: Ht 162.6 cm; Wt 102.3 kg
[~2024-07-29 12:01] MED LIST changes: +AMIO100T4 PO; +DIPH25TA23 PO
[2024-07-29] MEDS ORDERED: ONDANSETRON HCL/PF 4 MG/2 ML VIAL IVP PRN (12:30)
[2024-07-29] MEDS ORDERED: VANCOMYCIN 1 GM in IV D5W 250 ML IV ONE (12:30)
[2024-07-29] MEDS: IV NS 0.9% 1,000 ML BAG IV ONE (12:31)
[2024-07-29] MEDS: PIPERACILLIN /TAZOBACTAM 3.375 G in IV D5W 50 ML IV ONE (12:39)
[2024-07-29 12:58] LABS: CALCIUM, SERUM 8.6 mg/dL (8.5-10.1); CREATININE 1.3 mg/dL (0.6-1.3); POTASSIUM 4.1 mmol/L (3.5-5.1)
[2024-07-29] MEDS: LINEZOLID RTU BAG 600 MG in PREMIX 1 EA IV ONE (13:00)
[2024-07-29 13:04] LABS: ALBUMIN 2.2 g/dL (3.4-5.0); BILIRUBIN,DIRECT 0.1 mg/dL (0.0-0.2); BILIRUBIN,TOTAL 0.2 mg/dL (0.2-1.0); TOTAL PROTEIN, SERUM 6.6 g/dL (6.4-8.2)
[2024-07-29] MEDS ORDERED: CRAN300T PO (13:08)
[2024-07-29] MEDS ORDERED: MIDO10TA PO (13:08)
[2024-07-29] MEDS ORDERED: ACET325T53 PO (13:08)
[2024-07-29] MEDS ORDERED: ZINC220C6 PO (13:08)
[2024-07-29] MEDS ORDERED: AMIN30LI66 PO (13:08)
[2024-07-29] MEDS ORDERED: LOPE2CAP PO (13:08)
[2024-07-29 13:25] LABS: BASOPHILS % (AUTO) 0.6 % (0.0-2.0); EOSINOPHILS # (AUTO) 0.4 K/uL (0.0-0.7); EOSINOPHILS % (AUTO) 8.2 % (0.0-6.0); HEMATOCRIT 32 % (33-45); HEMOGLOBIN 10.6 g/dL (11.5-14.8); LYMPHOCYTES # (AUTO) 2.1 K/uL (0.8-4.8); LYMPHOCYTES % (AUTO) 46.4 % (20.0-44.0); MEAN CORPUSCULAR HEMOGLOBIN 32 PG (26.0-33.0); MEAN CORPUSCULAR HGB CONC 33 g/dl (31.0-36.0); MEAN CORPUSCULAR VOLUME 96 fL (82-100); MONOCYTES # (AUTO) 0.2 K/uL (0.1-1.30); NEUTROPHILS # (AUTO) 1.8 K/uL (1.8-8.9); NEUTROPHILS % (AUTO) 39.8 % (43.0-81.0); RED BLOOD CELL COUNT(AUTO) 3.36 MIL/uL (4.0-5.2); RED CELL DISTRIBUTION WIDTH 14.5 % (11.5-15.0); WHITE BLOOD COUNT (AUTO) 4.6 K/uL (4.3-11.0)
[2024-07-29 13:27] LABS: INR 1.16 (0.91-1.10); PARTIAL THROMBOPLASTIN TIME 33.1 SEC (24.3-34.3); PLATELET COUNT (AUTO) 90 K/uL (150-450); PROTHROMBIN TIME 12.2 SECS (9.2-11.1)
[2024-07-29 13:57] LABS: EOSINOPHILS % (MANUAL) 8 % (0-4); LYMPHOCYTES % (MANUAL) 45 % (16-48); MONOCYTES % (MANUAL) 1 % (0-11.0); NEUTROPHILS % (MANUAL) 46 (42-76); PLATELET ESTIMATE DECREASED
[2024-07-29 14:54] VITALS: BP 102/60; TEMP 97.9; O2SAT 98
[2024-07-29] MEDS: CEFEPIME 2 GM in IV D5W 100 ML IV SCH (15:59)
[2024-07-29 16:00] VITALS: BP 99/53; TEMP 97.9; O2SAT 99
[2024-07-29 20:00] VITALS: BP 103/59; TEMP 98.2; O2SAT 99
[2024-07-29] MEDS ORDERED: DEXTROSE 50%-WATER 50 ML DISP.SYRIN IV PRN (21:00)
[2024-07-29] MEDS: HEPARIN SODIUM, PORCINE 5000 UNITS/1 ML VIAL SQ SCH (21:37)
[2024-07-29] MEDS: BLOOD SUGAR DIAGNOSTIC 1 EACH STRIP IN SCH (21:47)
[2024-07-29] MEDS: INSULIN REGULAR, HUMAN 100 UNIT/ML 3 ML VIAL SQ PRN (21:48)
[2024-07-29] MEDS: MORPHINE SULFATE INJ 2 MG/ML DISP.SYRIN IV PRN (21:53)
[2024-07-30] MEDS ORDERED: LINEZOLID RTU BAG 600 MG in PREMIX 1 EA IV SCH (01:00)
[2024-07-30] MEDS: LINEZOLID 600 MG TABLET PO SCH (01:20)
[2024-07-30 04:00] VITALS: BP 103/55; TEMP 97.5; O2SAT 99
[2024-07-30 08:00] VITALS: BP 113/57; TEMP 98.2; O2SAT 100
[2024-07-30] MEDS: PANTOPRAZOLE 40 MG TABLET.DR PO SCH (08:35)
[2024-07-30] MEDS: ESCITALOPRAM OXALATE (10 MG) 10 MG TABLET PO SCH (09:00)
[2024-07-30] MEDS ORDERED: hydrOXYzine PAMOATE 25 MG CAPSULE PO PRN (09:00)
[2024-07-30] MEDS ORDERED: APIXABAN 5 MG TABLET PO SCH (09:00)
[2024-07-30] MEDS: FUROSEMIDE 40 MG TABLET PO SCH (09:00)
[2024-07-30] MEDS: AMIODARONE HCL 200 MG TABLET PO SCH (09:00)
[2024-07-30] MEDS: METOPROLOL TARTRATE 50 MG TABLET PO SCH (09:00)
[2024-07-30] MEDS: THERAHONEY GEL 1.5 OZ TUBE TP SCH (10:16)
[2024-07-30] MEDS: ASCORBIC ACID 500 MG TABLET PO SCH (10:16)
[2024-07-30] MEDS: Z GUARD REMEDY 4 OZ OINT TP SCH (10:16)
[2024-07-30] MEDS: MUPIROCIN OINT 2% 22 GM TUBE TP SCH (10:16)
[2024-07-30] MEDS: GABAPENTIN 400 MG CAPSULE PO SCH (10:17)
[2024-07-30] MEDS: APIXABAN 5 MG TABLET PO SCH (10:18)
[2024-07-30] MEDS: TERBINAFINE HCL 250 MG TABLET PO SCH (10:43)
[2024-07-30 12:00] VITALS: BP 91/55; TEMP 98.2; O2SAT 98
[2024-07-30] MEDS: MIDODRINE HCL (5MG) 5 MG TABLET PO SCH (12:51)
[2024-07-30 15:27] LABS: BASOPHILS % (AUTO) 0.6 % (0.0-2.0); EOSINOPHILS # (AUTO) 0.3 K/uL (0.0-0.7); EOSINOPHILS % (AUTO) 7.1 % (0.0-6.0); HEMATOCRIT 32 % (33-45); HEMOGLOBIN 10.4 g/dL (11.5-14.8); LYMPHOCYTES # (AUTO) 1.6 K/uL (0.8-4.8); LYMPHOCYTES % (AUTO) 38.4 % (20.0-44.0); MEAN CORPUSCULAR HEMOGLOBIN 31 PG (26.0-33.0); MEAN CORPUSCULAR HGB CONC 33 g/dl (31.0-36.0); MEAN CORPUSCULAR VOLUME 95 fL (82-100); MONOCYTES # (AUTO) 0.2 K/uL (0.1-1.30); MONOCYTES % (AUTO) 5.6 % (2.0-12.0); NEUTROPHILS % (AUTO) 48.3 % (43.0-81.0); PLATELET COUNT (AUTO) 89 K/uL (150-450); RED BLOOD CELL COUNT(AUTO) 3.33 MIL/uL (4.0-5.2); RED CELL DISTRIBUTION WIDTH 14.5 % (11.5-15.0); WHITE BLOOD COUNT (AUTO) 4.1 K/uL (4.3-11.0)
[2024-07-30 16:00] VITALS: BP 114/68; TEMP 98.2; O2SAT 99
[2024-07-30 16:02] LABS: ALBUMIN 2.1 g/dL (3.4-5.0); BILIRUBIN,TOTAL 0.3 mg/dL (0.2-1.0); CALCIUM, SERUM 8.4 mg/dL (8.5-10.1); CREATININE 1.3 mg/dL (0.6-1.3); MAGNESIUM 1.5 mg/dL (1.8-2.4); POTASSIUM 4.6 mmol/L (3.5-5.1); TOTAL PROTEIN, SERUM 6.4 g/dL (6.4-8.2)
[2024-07-30 16:11] LABS: ANISOCYTOSIS 1+; EOSINOPHILS % (MANUAL) 6 % (0-4); LYMPHOCYTES % (MANUAL) 36 % (16-48); MONOCYTES % (MANUAL) 6 % (0-11.0); NEUTROPHILS % (MANUAL) 52 (42-76); PLATELET ESTIMATE DECREASED
[2024-07-30] MEDS: CLOTRIMAZOLE 1% 15 GM TUBE TP SCH (17:00)
[2024-07-30] MEDS: oxyCODONE IR immediate release 5 MG TABLET PO PRN (17:28)
[2024-07-30 20:56] VITALS: BP 111/58; TEMP 98.1; O2SAT 100
[2024-07-30] MEDS: TRAZODONE 50 MG TABLET PO SCH (21:25)
[2024-07-31 04:37] VITALS: BP 108/60; TEMP 97.2; O2SAT 98
[2024-07-31 08:00] VITALS: BP_SYST 101; BP_SYST 98; BP_DIAS 55; BP_DIAS 65; TEMP 97.5; O2SAT 99
[2024-07-31 16:00] VITALS: BP 91/53; TEMP 97.9; O2SAT 99
[2024-07-31 17:00] VITALS: BP 116/82
[2024-07-31] MEDS: Z GUARD REMEDY 4 OZ OINT TP PRN (17:34)
[2024-07-31 20:00] VITALS: BP 91/48; TEMP 97.5; O2SAT 99
[2024-08-01 03:54] LABS: APPEARANCE,URINE CLEAR (CLEAR); BILIRUBIN,URINE NEGATIVE (NEGATIVE); BLOOD, URINE TRACE-INTA Ery/uL (NEGATIVE); COLOR,URINE YELLOW (YELLOW); KETONES,URINE NEGATIVE (NEGATIVE); LEUKOCYTE ESTERASE ,URINE 2+ (NEGATIVE); NITRITE, URINE NEGATIVE (NEGATIVE); PH,URINE 6.5 (5.0-8.0); PROTEIN,URINE 2+ mg/dl (NEGATIVE); UGLUCOSE NEGATIVE (NEGATIVE); UROBILINOGEN,URINE 0.2 EU/dL (0.2)
[2024-08-01 04:00] VITALS: BP 92/55; TEMP 97.8; O2SAT 99
[2024-08-01 05:38] LABS: ADD URINE CULTURE YES; BACTERIA,URINE Rare /HPF (None Seen); SQUAMOUS EPITHELIAL CELL,UR Few /HPF (None Seen); WBC,URINE 21-50 /HPF (0-3)
[2024-08-01 05:39] LABS: EOSINOPHIL,URINE None Seen
[2024-08-01 06:47] LABS: BASOPHILS % (AUTO) 0.2 % (0.0-2.0); EOSINOPHILS # (AUTO) 0.2 K/uL (0.0-0.7); EOSINOPHILS % (AUTO) 3.4 % (0.0-6.0); HEMATOCRIT 36 % (33-45); HEMOGLOBIN 11.2 g/dL (11.5-14.8); LYMPHOCYTES # (AUTO) 1.9 K/uL (0.8-4.8); LYMPHOCYTES % (AUTO) 30.4 % (20.0-44.0); MEAN CORPUSCULAR HEMOGLOBIN 31 PG (26.0-33.0); MEAN CORPUSCULAR HGB CONC 31 g/dl (31.0-36.0); MEAN CORPUSCULAR VOLUME 98 fL (82-100); MONOCYTES # (AUTO) 0.3 K/uL (0.1-1.30); MONOCYTES % (AUTO) 5.5 % (2.0-12.0); NEUTROPHILS # (AUTO) 3.9 K/uL (1.8-8.9); NEUTROPHILS % (AUTO) 60.5 % (43.0-81.0); PLATELET COUNT (AUTO) 112 K/uL (150-450); RED BLOOD CELL COUNT(AUTO) 3.64 MIL/uL (4.0-5.2); RED CELL DISTRIBUTION WIDTH 14.7 % (11.5-15.0); WHITE BLOOD COUNT (AUTO) 6.4 K/uL (4.3-11.0)
[2024-08-01 08:00] VITALS: BP 120/49; TEMP 98; O2SAT 100
[2024-08-01] MEDS ORDERED: CEPH-570 PO (11:51)
[2024-08-01] MEDS ORDERED: MUPI22OI7 TP ×2 (11:51→12:52)
[2024-08-01] MEDS: ACETAMINOPHEN 325 MG TABLET PO PRN (12:29)
[2024-08-01] MEDS ORDERED: MICO14CR5 TP (12:52)
[2024-08-01 14:18] VITALS: BP 114/97
== END 2024-08-01 15:08 | DRG 564 ==
LOC: ER 12:05 → MEDSG1 13:42
PROVIDERS: ADMIT Internal Medicine; ATTEND Nurse Practitioner Acute Care
DX: T87.43 Infection of amputation stump, right lower extremity (principal); L89.153 Pressure ulcer of sacral region, stage 3; D68.59 Other primary thrombophilia; E11.52 Type 2 diabetes mellitus with diabetic peripheral angiopathy with gangrene; I96 Gangrene, not elsewhere classified; E44.0 Moderate protein-calorie malnutrition; I13.0 Hypertensive heart and chronic kidney disease with heart failure and stage 1 through stage 4 chronic kidney disease, or unspecified chronic kidney disease; N17.9 Acute kidney failure, unspecified; L03.115 Cellulitis of right lower limb; E87.1 Hypo-osmolality and hyponatremia; Z16.21 Resistance to vancomycin; I48.20 Chronic atrial fibrillation, unspecified; Y92.129 Unspecified place in nursing home as the place of occurrence of the external cause; L03.031 Cellulitis of right toe; E11.40 Type 2 diabetes mellitus with diabetic neuropathy, unspecified; Y83.5 Amputation of limb(s) as the cause of abnormal reaction of the patient, or of later complication, without mention of misadventure at the time of the procedure; I50.9 Heart failure, unspecified; E88.09 Other disorders of plasma-protein metabolism, not elsewhere classified; J44.9 Chronic obstructive pulmonary disease, unspecified; K21.9 Gastro-esophageal reflux disease without esophagitis; D64.9 Anemia, unspecified; E11.22 Type 2 diabetes mellitus with diabetic chronic kidney disease; Z68.32 Body mass index [BMI] 32.0-32.9, adult; Z79.899 Other long term (current) drug therapy; E78.5 Hyperlipidemia, unspecified; E11.621 Type 2 diabetes mellitus with foot ulcer; R26.2 Difficulty in walking, not elsewhere classified; Z88.2 Allergy status to sulfonamides; Z88.8 Allergy status to other drugs, medicaments and biological substances; M89.8X9 Other specified disorders of bone, unspecified site; Z98.890 Other specified postprocedural states; Z79.01 Long term (current) use of anticoagulants; Z87.891 Personal history of nicotine dependence; L97.519 Non-pressure chronic ulcer of other part of right foot with unspecified severity; Z74.09 Other reduced mobility; D69.6 Thrombocytopenia, unspecified; E87.6 Hypokalemia; E66.01 Morbid (severe) obesity due to excess calories; B95.2 Enterococcus as the cause of diseases classified elsewhere; L98.9 Disorder of the skin and subcutaneous tissue, unspecified; N18.2 Chronic kidney disease, stage 2 (mild)
CPT/HCPCS: 36415; 71045-TC; 73630-TC; 80048-TC; 80053-TC; 80076-TC; 81001; 82962-TC; 83735-TC; 84100-TC; 85025-TC; 85652-TC; 85730-TC; 86140-TC; 86850-TC; 87040-TC; 87081-TC; 87086-TC; 87186-TC; 93970-TC; A4216; A4223; G0378; J0692; J1644; J1815; J2020; J2270; J2543; J3370; J7030; J7050; J7060

== ENCOUNTER 2024-10-27 09:56 | Inpatient (IN) | payer MEDICARE, OTHER ==
[2024-10-27] VITALS (30 sets, daily range): BP systolic 80–120; BP diastolic 68–94; TEMP 96.7–99; O2SAT 86–97
[~2024-10-27] VITALS: Ht 167.6 cm; Wt 103.0 kg
[~2024-10-27 09:56] MED LIST changes: +ACET325T53 PO; +AMIN30LI66 PO; -AMIO200T5 PO; +CEPH-570 PO; +CRAN300T PO; -DIPH1TAB PO; -DIPH25TA23 PO; +LEVO500T90 PO; +LOPE2CAP PO; +MICO14CR5 TP; +MIDO10TA PO; -MIDO5TAB4 PO; +MUPI22OI7 TP; -PRED5TAB PO; +ZINC220C6 PO
[2024-10-27] MEDS ORDERED: IV NS 0.9% 1,000 ML BAG IV ONE (10:30)
[2024-10-27] MEDS: PIPERACILLIN /TAZOBACTAM 3.375 G in IV D5W 50 ML IV ONE (10:30)
[2024-10-27] MEDS: ALBUTEROL FS 2.5 MG/3 ML VIAL.NEB CONTNEB ONE (10:34)
[2024-10-27] MEDS: IPRATROPIUM NEB FS 0.5 MG/2.5 ML AMPUL.NEB NEB ONE (10:34)
[2024-10-27] MEDS: IV NS 0.9% 1,000 ML BAG IV ONE (10:35)
[2024-10-27] MEDS ORDERED: NOREPINEPHRINE 8MG/250ML RTU 250 ML IV ONE ×2 (10:46→12:08)
[2024-10-27] MEDS ORDERED: GUAI-1189 PO (10:46)
[2024-10-27 10:48] LABS: PLATELET COUNT (AUTO) 316 K/uL (150-450); RED BLOOD CELL COUNT(AUTO) 4.46 MIL/uL (4.0-5.2); RED CELL DISTRIBUTION WIDTH 16.4 % (11.5-15.0); WHITE BLOOD COUNT (AUTO) 16.2 K/uL (4.3-11.0)
[2024-10-27 10:58] LABS: CALCIUM, SERUM 7.9 mg/dL (8.5-10.1); CREATININE 3.7 mg/dL (0.6-1.3); SODIUM SERUM 132 mmol/L (136-145); UREA NITROGEN, BLOOD 65 mg/dL (7-18)
[2024-10-27] MEDS: PANTOPRAZOLE 80 MG in IV NS 0.9% 100 ML IV ONE (11:00)
[2024-10-27 11:04] LABS: ASPARTATE AMINOTRANSFERASE 37 U/L (15-37); TOTAL PROTEIN, SERUM 7.4 g/dL (6.4-8.2)
[2024-10-27 11:05] LABS: LACTIC ACID 1.3 mmol/L (0.4-2.0)
[2024-10-27 11:13] LABS: INR 1.68 (0.91-1.10)
[2024-10-27] MEDS ORDERED: PROPOFOL 100 ML ONE (11:24)
[2024-10-27] MEDS ORDERED: Z GUARD REMEDY 4 OZ OINT TP PRN (11:30)
[2024-10-27] MEDS ORDERED: DOSING PER PHARMACY-ZOSYN IV 1 EA EA XX PRN (11:30)
[2024-10-27] MEDS ORDERED: NOREPINEPHRINE 32 MG in IV NS 0.9% 218 ML IV PRN ×2 (11:30→12:30)
[2024-10-27] MEDS ORDERED: DOSING PER PHARMACY-VANCOMYCIN IV XX PRN (11:30)
[2024-10-27] MEDS ORDERED: ACETAMINOPHEN 650 MG/SUPP.RECT RC PRN (11:30)
[2024-10-27] MEDS: IPRATROPIUM NEB FS 0.5 MG/2.5 ML AMPUL.NEB NEB SCH (11:30)
[2024-10-27] MEDS ORDERED: IPRATROPIUM NEB FS 0.5 MG/2.5 ML AMPUL.NEB NEB PRN (11:30)
[2024-10-27] MEDS ORDERED: ALBUTEROL FS 2.5 MG/3 ML VIAL.NEB NEB PRN (11:30)
[2024-10-27] MEDS ORDERED: ONDANSETRON HCL/PF 4 MG/2 ML VIAL IVP PRN (11:30)
[2024-10-27] MEDS: ALBUTEROL FS 2.5 MG/3 ML VIAL.NEB NEB SCH (11:30)
[2024-10-27] MEDS ORDERED: PROPOFOL 10MG/ML 50ML 50 ML IV PRN (11:30)
[2024-10-27] MEDS: PANTOPRAZOLE 80 MG in IV NS 0.9% 500 ML IV ONE (11:40)
[2024-10-27] MEDS: VANCOMYCIN 1 GM in IV D5W 250 ML IV ONE (11:50)
[2024-10-27] MEDS: Magnesium 1GM/D5W 100ML PREMIX 200 ML IV ONE (12:00)
[2024-10-27 13:23] LABS: APPEARANCE,URINE BLOODY (CLEAR)
[2024-10-27] MEDS: VANCOMYCIN 500 MG in IV D5W 100 ML IV ONE (13:40)
[2024-10-27 13:42] LABS: SQUAMOUS EPITHELIAL CELL,UR Few /HPF (None Seen)
[2024-10-27 15:05] LABS: ABG BASE EXCESS -16.4 mmol/L (-2.0-3.0); ABG OXYGEN SATURATION 93.7 % (94.0-98.0); ABG PCO2 38.9 mmHg (32.0-45.0); ABG PH 7.116 (7.350-7.450); ABG PO2 80.7 mmHg (83.0-108.0); ABG TOTAL HEMOGLOBIN 14.2 G/dL (12.0-16.0); FRACTIONATED INSPIRED OXYGEN 100.0 %; PEEP,BG 5 cm H2O; SET RATE, BG 16.0; SITE, ABG LEFT RADIAL; VT, ABG 450 mL
[2024-10-27] MEDS: IV D5/ 0.9% NACL 1,000 ML IV SCH (15:23)
[2024-10-27] MEDS ORDERED: NOREPINEPHRINE 8 MG in IV D5W 250ML IV PRN (15:30)
[2024-10-27] MEDS: NOREPINEPHRINE 32 MG in IV NS 0.9% 218 ML IV PRN (15:39)
[2024-10-27] MEDS: Sodium Bicarbonate 100 MEQ in IV D5 / 0.2% NACL 1,000 ML IV SCH (16:06)
[2024-10-27] MEDS ORDERED: ETOMIDATE 2 MG/ML VIAL IV ONE (16:26)
[2024-10-27] MEDS ORDERED: SUCCINYLCHOLINE CHLORIDE 20 MG/ML VIAL IV ONE (16:26)
[2024-10-27] MEDS: PIPERACILLIN /TAZOBACTAM 2.25 G in IV D5W 50 ML IV SCH (17:40)
[2024-10-27 17:43] LABS: ABG BASE EXCESS -14.0 mmol/L (-2.0-3.0); ABG OXYGEN SATURATION 92.6 % (94.0-98.0); ABG PCO2 28.9 mmHg (32.0-45.0); ABG PH 7.234 (7.350-7.450); ABG PO2 69.7 mmHg (83.0-108.0); ABG TOTAL HEMOGLOBIN 14.2 G/dL (12.0-16.0); FRACTIONATED INSPIRED OXYGEN 70.0 %; PEEP,BG 5 cm H2O; SET RATE, BG 26.0; SITE, ABG LEFT RADIAL; VT, ABG 475 mL
[2024-10-27 19:28] LABS: CREATININE, URINE 168.1 MG/DL (30.0-125.0); URINE SODIUM, RANDOM 68.0 mmol/l (40-220); URINE TOTAL PROTEIN 952.6 mg/dL (0-11.9)
[2024-10-27] MEDS ORDERED: HEPARIN SODIUM, PORCINE 5000 UNITS/1 ML VIAL SQ SCH (21:00)
[2024-10-27] MEDS: PANTOPRAZOLE 40 MG VIAL IV SCH (21:21)
[2024-10-28] VITALS (95 sets, daily range): BP systolic 72–111; BP diastolic 32–83; TEMP 97.9–98.8; O2SAT 90–99
[2024-10-28] MEDS: PROPOFOL 100 ML IV PRN (03:31)
[2024-10-28 04:38] LABS: PLATELET COUNT (AUTO) 375 K/uL (150-450); RED BLOOD CELL COUNT(AUTO) 4.20 MIL/uL (4.0-5.2); RED CELL DISTRIBUTION WIDTH 16.0 % (11.5-15.0); WHITE BLOOD COUNT (AUTO) 20.5 K/uL (4.3-11.0)
[2024-10-28 05:20] LABS: CALCIUM, SERUM 7.0 mg/dL (8.5-10.1); CREATININE 3.2 mg/dL (0.6-1.3); PHOSPHORUS 2.6 mg/dL (2.5-4.9); SODIUM SERUM 133 mmol/L (136-145); UREA NITROGEN, BLOOD 60 mg/dL (7-18)
[2024-10-28 05:21] LABS: ASPARTATE AMINOTRANSFERASE 33 U/L (15-37); TOTAL PROTEIN, SERUM 6.0 g/dL (6.4-8.2)
[2024-10-28 05:29] LABS: CREATINE KINASE, TOTAL 46 U/L (26-192)
[2024-10-28] MEDS ORDERED: LINEZOLID RTU BAG 600 MG in PREMIX 1 EA IV SCH (09:00)
[2024-10-28] MEDS ORDERED: PANTOPRAZOLE 40 MG VIAL IV SCH (09:00)
[2024-10-28 09:35] LABS: ABG BASE EXCESS -7.5 mmol/L (-2.0-3.0); ABG OXYGEN SATURATION 91.8 % (94.0-98.0); ABG PCO2 27.5 mmHg (32.0-45.0); ABG PH 7.382 (7.350-7.450); ABG PO2 62.6 mmHg (83.0-108.0); ABG TOTAL HEMOGLOBIN 14.0 G/dL (12.0-16.0); FRACTIONATED INSPIRED OXYGEN 70.0 %; PEEP,BG 8 cm H2O; SET RATE, BG 26.0; SITE, ABG LEFT RADIAL; VT, ABG 475 mL
[2024-10-28] MEDS: POTASSIUM CL. PREMIX PERIPHER. 50 ML IV SCH (10:59)
[2024-10-28] MEDS: LINEZOLID RTU BAG 600 MG in PREMIX 1 EA IV SCH (11:55)
[2024-10-28] MEDS: MEROPENEM 1 G in IV NS 0.9% 100 ML IV SCH (18:07)
[2024-10-29] VITALS (96 sets, daily range): BP systolic 68–128; BP diastolic 51–80; TEMP 97.8–99.3; O2SAT 87–100
[2024-10-29 04:13] LABS: PLATELET COUNT (AUTO) 330 K/uL (150-450); RED BLOOD CELL COUNT(AUTO) 3.84 MIL/uL (4.0-5.2); RED CELL DISTRIBUTION WIDTH 15.5 % (11.5-15.0); WHITE BLOOD COUNT (AUTO) 26.6 K/uL (4.3-11.0)
[2024-10-29 04:35] LABS: ASPARTATE AMINOTRANSFERASE 39.0 U/L (15-37); CALCIUM, SERUM 7.0 mg/dL (8.5-10.1); CREATININE 3.2 mg/dL (0.6-1.3); PHOSPHORUS 3.0 mg/dL (2.5-4.9); SODIUM SERUM 134.0 mmol/L (136-145); TOTAL PROTEIN, SERUM 5.5 g/dL (6.4-8.2); UREA NITROGEN, BLOOD 58.0 mg/dL (7-18)
[2024-10-29 07:12] LABS: ABG BASE EXCESS -6.0 mmol/L (-2.0-3.0); ABG OXYGEN SATURATION 95.5 % (94.0-98.0); ABG PCO2 27.1 mmHg (32.0-45.0); ABG PH 7.416 (7.350-7.450); ABG PO2 81.0 mmHg (83.0-108.0); ABG TOTAL HEMOGLOBIN 12.8 G/dL (12.0-16.0); FRACTIONATED INSPIRED OXYGEN 70.0 %; PEEP,BG 10 cm H2O; SET RATE, BG 26.0; SITE, ABG LEFT RADIAL; VT, ABG 475 mL
[2024-10-29 08:07] LABS: PTH, INTACT 613 pg/mL (15-65)
[2024-10-29] MEDS: Magnesium 1GM/D5W 100ML PREMIX 100 ML IV SCH (10:29)
[2024-10-29] MEDS: POTASSIUM CL. PREMIX PERIPHER. 50 ML IV SCH (10:30)
[2024-10-29] MEDS ORDERED: VANCOMYCIN 1 GM in IV D5W 250 ML IV SCH (13:00)
[2024-10-30] VITALS (86 sets, daily range): BP systolic 72–130; BP diastolic 48–91; TEMP 97.2–99.4; O2SAT 93–99
[2024-10-30 04:36] LABS: PLATELET COUNT (AUTO) 276 K/uL (150-450); RED BLOOD CELL COUNT(AUTO) 3.69 MIL/uL (4.0-5.2); RED CELL DISTRIBUTION WIDTH 15.7 % (11.5-15.0)
[2024-10-30 05:07] LABS: ASPARTATE AMINOTRANSFERASE 26.0 U/L (15-37); CALCIUM, SERUM 6.2 mg/dL (8.5-10.1); CREATININE 2.8 mg/dL (0.6-1.3); PHOSPHORUS 2.5 mg/dL (2.5-4.9); SODIUM SERUM 129.0 mmol/L (136-145); TOTAL PROTEIN, SERUM 5.0 g/dL (6.4-8.2); UREA NITROGEN, BLOOD 52.0 mg/dL (7-18)
[2024-10-30 05:08] LABS: WHITE BLOOD COUNT (AUTO) 34.1 K/uL (4.3-11.0)
[2024-10-30 07:16] LABS: LYMPHOCYTES % (MANUAL) 10 % (16-48); MONOCYTES % (MANUAL) 1 % (0-11.0); NEUTROPHILS % (MANUAL) 89 (42-76); PLATELET ESTIMATE ADEQUATE
[2024-10-30 08:33] LABS: ABG BASE EXCESS -4.1 mmol/L (-2.0-3.0); ABG OXYGEN SATURATION 92.9 % (94.0-98.0); ABG PCO2 25.6 mmHg (32.0-45.0); ABG PH 7.467 (7.350-7.450); ABG PO2 65.6 mmHg (83.0-108.0); ABG TOTAL HEMOGLOBIN 12.4 G/dL (12.0-16.0); FRACTIONATED INSPIRED OXYGEN 50.0 %; PEEP,BG 10 cm H2O; SET RATE, BG 26.0; SITE, ABG LEFT BRACHIAL; VT, ABG 475 mL
[2024-10-30] MEDS ORDERED: Sodium Bicarbonate 100 MEQ in IV 1/2NS 1000 ML 1,000 ML IV PRN (09:00)
[2024-10-30] MEDS: IV LR 1000 ML 1,000 ML IV SCH (09:03)
[2024-10-30] MEDS: POTASSIUM CL. PREMIX PERIPHER. 50 ML IV SCH (09:04)
[2024-10-30] MEDS: Magnesium 1GM/D5W 100ML PREMIX 100 ML IV SCH (09:04)
[2024-10-30] MEDS: GLUCERNA 1.2 1,000 ML BOTTLE NG PRN (10:03)
[2024-10-30] MEDS ORDERED: Magnesium 1GM/D5W 100ML PREMIX 100 ML IV SCH (10:30)
[2024-10-30] MEDS: MIDAZOLAM HCL 100 MG in IV NS 0.9% 80 ML IV PRN (12:18)
[2024-10-30] MEDS: FENTANYL CITRAT IV 2,500 MCG in IV NS 0.9% 200 ML IV PRN (12:21)
[2024-10-30] MEDS ORDERED: DOSE PER PHARMACY MICAFUNGIN 1 EA XX PRN (15:30)
[2024-10-30] MEDS: METRONIDAZOLE 500MG/ NS 100ML 500 MG in PREMIX 1 EA IV SCH (16:44)
[2024-10-30] MEDS: VANCOMYCIN HCL 125 MG/2.5 ML ORAL.SUSP PO SCH (17:44)
[2024-10-30] MEDS: MICAFUNGIN SODIUM 100 MG in IV NS 0.9% 100 ML IV SCH (17:53)
[2024-10-30] MEDS: PHENYLEPHRINE 100 MG in IV NS 0.9% 240 ML IV PRN (19:53)
[2024-10-31] VITALS (100 sets, daily range): BP systolic 55–137; BP diastolic 20–93; TEMP 97.9–99.3; O2SAT 95–99
[2024-10-31 04:21] LABS: PLATELET COUNT (AUTO) 275 K/uL (150-450); RED BLOOD CELL COUNT(AUTO) 3.75 MIL/uL (4.0-5.2); RED CELL DISTRIBUTION WIDTH 16.0 % (11.5-15.0)
[2024-10-31 04:33] LABS: WHITE BLOOD COUNT (AUTO) 39.4 K/uL (4.3-11.0)
[2024-10-31 04:41] LABS: ASPARTATE AMINOTRANSFERASE 30 U/L (15-37); CALCIUM, SERUM 7.4 mg/dL (8.5-10.1); CREATININE 2.8 mg/dL (0.6-1.3); PHOSPHORUS 4.2 mg/dL (2.5-4.9); SODIUM SERUM 130 mmol/L (136-145); TOTAL PROTEIN, SERUM 5.2 g/dL (6.4-8.2); UREA NITROGEN, BLOOD 56 mg/dL (7-18)
[2024-10-31 04:52] LABS: BAND % (MANUAL) 1 % (0.0-5.0); LYMPHOCYTES % (MANUAL) 7 % (16-48); MONOCYTES % (MANUAL) 4 % (0-11.0); NEUTROPHILS % (MANUAL) 88 (42-76); PLATELET ESTIMATE ADEQUATE
[2024-10-31 05:09] LABS: LACTIC ACID 6.4 mmol/L (0.4-2.0)
[2024-10-31 08:19] LABS: LACTIC ACID REFLEX 4.5 mmol/L (0.4-1.9)
[2024-10-31] MEDS: LINEZOLID RTU BAG 600 MG in PREMIX 1 EA IV SCH (17:03)
[2024-10-31] MEDS: NOREPINEPHRINE 4 MG/4 ML AMPUL IV ONE (19:48)
[2024-11-01] VITALS (96 sets, daily range): BP systolic 62–144; BP diastolic 21–106; TEMP 98–99.9; O2SAT 94–100
[2024-11-01] MEDS: ALBUMIN 25% 25 GM in PREMIX 1 EA IV SCH (03:33)
[2024-11-01 04:54] LABS: PLATELET COUNT (AUTO) 207 K/uL (150-450); RED BLOOD CELL COUNT(AUTO) 3.26 MIL/uL (4.0-5.2); RED CELL DISTRIBUTION WIDTH 16.0 % (11.5-15.0)
[2024-11-01 05:09] LABS: WHITE BLOOD COUNT (AUTO) 35.5 K/uL (4.3-11.0)
[2024-11-01 05:15] LABS: CALCIUM, SERUM 6.8 mg/dL (8.5-10.1); CREATININE 2.3 mg/dL (0.6-1.3); PHOSPHORUS 4.7 mg/dL (2.5-4.9); SODIUM SERUM 136.0 mmol/L (136-145); UREA NITROGEN, BLOOD 46.0 mg/dL (7-18)
[2024-11-01 05:35] LABS: BAND % (MANUAL) 2 % (0.0-5.0); BASOPHILS % (MANUAL) 0 % (0.0-2.0); EOSINOPHILS % (MANUAL) 0 % (0-4); LYMPHOCYTES % (MANUAL) 5 % (16-48); MONOCYTES % (MANUAL) 3 % (0-11.0); NEUTROPHILS % (MANUAL) 90 (42-76)
[2024-11-01 05:36] LABS: PLATELET ESTIMATE ADEQUATE
[2024-11-01] MEDS: Magnesium 1GM/D5W 100ML PREMIX 100 ML IV SCH (05:55)
[2024-11-01 08:55] LABS: ABG BASE EXCESS -9.4 mmol/L (-2.0-3.0); ABG OXYGEN SATURATION 95.9 % (94.0-98.0); ABG PCO2 25.1 mmHg (32.0-45.0); ABG PH 7.374 (7.350-7.450); ABG PO2 86.8 mmHg (83.0-108.0); ABG TOTAL HEMOGLOBIN 11.1 G/dL (12.0-16.0); FRACTIONATED INSPIRED OXYGEN 70.0 %; PEEP,BG 10 cm H2O; SET RATE, BG 26.0; SITE, ABG LEFT RADIAL; VT, ABG 475 mL
[2024-11-01] MEDS: POTASSIUM CL. PREMIX PERIPHER. 50 ML IV SCH (09:30)
[2024-11-01] MEDS: HEPARIN SODIUM, PORCINE 5000 UNITS/1 ML VIAL SQ SCH (11:50)
[2024-11-02] VITALS (97 sets, daily range): BP systolic 65–114; BP diastolic 31–83; TEMP 98–98.6; O2SAT 90–100
[2024-11-02 05:33] LABS: PLATELET COUNT (AUTO) 132 K/uL (150-450); RED BLOOD CELL COUNT(AUTO) 2.65 MIL/uL (4.0-5.2); RED CELL DISTRIBUTION WIDTH 15.7 % (11.5-15.0); WHITE BLOOD COUNT (AUTO) 29.3 K/uL (4.3-11.0)
[2024-11-02 08:14] LABS: ABG BASE EXCESS -7.6 mmol/L (-2.0-3.0); ABG OXYGEN SATURATION 94.6 % (94.0-98.0); ABG PCO2 31.6 mmHg (32.0-45.0); ABG PH 7.351 (7.350-7.450); ABG PO2 84.7 mmHg (83.0-108.0); ABG TOTAL HEMOGLOBIN 9.4 G/dL (12.0-16.0); FRACTIONATED INSPIRED OXYGEN 80.0 %; SET RATE, BG 26.0; SITE, ABG LEFT RADIAL; VT, ABG 475 mL
[2024-11-02 11:08] LABS: CALCIUM, SERUM 8.1 mg/dL (8.5-10.1); CREATININE 2.2 mg/dL (0.6-1.3); PHOSPHORUS 4.1 mg/dL (2.5-4.9); SODIUM SERUM 135.0 mmol/L (136-145); UREA NITROGEN, BLOOD 50.0 mg/dL (7-18)
[2024-11-02] MEDS ORDERED: NOREPINEPHRINE 32 MG in IV NS 0.9% 218 ML IV PRN (11:30)
[2024-11-02] MEDS: PHENYLEPHRINE 100 MG in IV NS 0.9% 240 ML IV PRN (12:17)
[2024-11-02] MEDS: POTASSIUM CL. PREMIX PERIPHER. 50 ML IV SCH (16:03)
[2024-11-03] VITALS (98 sets, daily range): BP systolic 60–129; BP diastolic 25–72; TEMP 97.7–98.2; O2SAT 84–100
[2024-11-03] MEDS: ALBUMIN 25% 100 ML IV ONE (00:57)
[2024-11-03] MEDS: ALBUMIN 25% 25 GM in PREMIX 1 EA IV SCH (00:59)
[2024-11-03] MEDS ORDERED: ALBUMIN 25% 12.5 GM in PREMIX 1 EA IV PRN (01:00)
[2024-11-03] MEDS: VITAL AF 1.2 1,000 ML BOTTLE GT PRN (03:09)
[2024-11-03] MEDS: DEXTROSE 50%-WATER 50 ML DISP.SYRIN IVP ONE (03:29)
[2024-11-03] MEDS ORDERED: DEXTROSE 50%-WATER 50 ML DISP.SYRIN IVP PRN (03:30)
[2024-11-03 05:25] LABS: PLATELET COUNT (AUTO) 109 K/uL (150-450); RED BLOOD CELL COUNT(AUTO) 2.90 MIL/uL (4.0-5.2); RED CELL DISTRIBUTION WIDTH 15.8 % (11.5-15.0)
[2024-11-03 05:29] LABS: WHITE BLOOD COUNT (AUTO) 32.3 K/uL (4.3-11.0)
[2024-11-03 05:40] LABS: CALCIUM, SERUM 8.0 mg/dL (8.5-10.1); CREATININE 2.1 mg/dL (0.6-1.3); PHOSPHORUS 4.5 mg/dL (2.5-4.9); SODIUM SERUM 135.0 mmol/L (136-145); UREA NITROGEN, BLOOD 51.0 mg/dL (7-18)
[2024-11-03 06:11] LABS: LYMPHOCYTES % (MANUAL) 8 % (16-48); NEUTROPHILS % (MANUAL) 92 (42-76)
[2024-11-03 06:12] LABS: PLATELET ESTIMATE GIANT PLATELET SEEN
[2024-11-03] MEDS: Magnesium 1GM/D5W 100ML PREMIX 100 ML IV SCH (06:50)
[2024-11-03] MEDS: POTASSIUM CL. PREMIX PERIPHER. 50 ML IV SCH ×2 (06:59→18:21)
[2024-11-03] MEDS ORDERED: PANTOPRAZOLE 40 MG/PACK PACK GT SCH (09:00)
[2024-11-03] MEDS: METOCLOPRAMIDE HCL 10 MG/2 ML VIAL IV SCH (09:19)
[2024-11-03] MEDS ORDERED: Magnesium 1GM/D5W 100ML PREMIX 100 ML IV SCH (09:30)
[2024-11-03] MEDS: PANTOPRAZOLE 40 MG VIAL IV SCH (09:38)
[2024-11-03] MEDS: BLOOD SUGAR DIAGNOSTIC 1 EACH STRIP IN PRN (10:22)
[2024-11-03] MEDS: IV D5/ 0.9% NACL 1,000 ML IV PRN (12:37)
[2024-11-03 16:31] LABS: CALCIUM, SERUM 8.1 mg/dL (8.5-10.1); CREATININE 2.0 mg/dL (0.6-1.3); SODIUM SERUM 133.0 mmol/L (136-145); UREA NITROGEN, BLOOD 50.0 mg/dL (7-18)
[2024-11-03 23:30] LABS: CALCIUM, SERUM 7.9 mg/dL (8.5-10.1); CREATININE 1.8 mg/dL (0.6-1.3); SODIUM SERUM 136.0 mmol/L (136-145); UREA NITROGEN, BLOOD 48.0 mg/dL (7-18)
[2024-11-04] VITALS (98 sets, daily range): BP systolic 56–120; BP diastolic 37–83; TEMP 97.6–98.3; O2SAT 92–100
[2024-11-04] MEDS: POTASSIUM CL. PREMIX PERIPHER. 50 ML IV SCH (00:50)
[2024-11-04 05:25] LABS: PLATELET COUNT (AUTO) 82 K/uL (150-450); RED BLOOD CELL COUNT(AUTO) 2.49 MIL/uL (4.0-5.2); RED CELL DISTRIBUTION WIDTH 15.7 % (11.5-15.0); WHITE BLOOD COUNT (AUTO) 29.7 K/uL (4.3-11.0)
[2024-11-04 05:40] LABS: CALCIUM, SERUM 7.8 mg/dL (8.5-10.1); CREATININE 1.7 mg/dL (0.6-1.3); PHOSPHORUS 4.2 mg/dL (2.5-4.9); SODIUM SERUM 135.0 mmol/L (136-145); UREA NITROGEN, BLOOD 46.0 mg/dL (7-18)
[2024-11-04 06:26] LABS: LYMPHOCYTES % (MANUAL) 3 % (16-48); NEUTROPHILS % (MANUAL) 95 (42-76)
[2024-11-04 06:27] LABS: BASOPHILS % (MANUAL) 0 % (0.0-2.0); EOSINOPHILS % (MANUAL) 1 % (0-4); MONOCYTES % (MANUAL) 0 % (0-11.0); PLATELET ESTIMATE DECREASED
[2024-11-04 08:07] LABS: *SPE A/G RATIO 0.6 (0.7-1.7); *SPE ALBUMIN 2.2 g/dL (2.9-4.4); *SPE ALPHA-1-GLOBULIN 0.4 g/dL (0.0-0.4); *SPE ALPHA-2-GLOBULIN 1.0 g/dL (0.4-1.0); *SPE BETA GLOBULIN 0.8 g/dL (0.7-1.3); *SPE GLOBULIN, TOTAL 3.4 g/dL (2.2-3.9); *SPE M-SPIKE Not Observed g/dL (Not Observed); *SPE PROTEIN TOTAL 5.6 g/dL (6.0-8.5); *SPEGAMMA GLOBULIN 1.3 g/dL (0.4-1.8)
[2024-11-04 08:50] LABS: ASPARTATE AMINOTRANSFERASE 31 U/L (15-37); TOTAL PROTEIN, SERUM 5.2 g/dL (6.4-8.2)
[2024-11-04] MEDS: PANTOPRAZOLE 40 MG/PACK PACK NG SCH (09:18)
[2024-11-04] MEDS: Magnesium 1GM/D5W 100ML PREMIX 100 ML IV SCH (09:19)
[2024-11-04 09:38] LABS: ABG BASE EXCESS -12.8 mmol/L (-2.0-3.0); ABG OXYGEN SATURATION 94.2 % (94.0-98.0); ABG PCO2 32.5 mmHg (32.0-45.0); ABG PH 7.236 (7.350-7.450); ABG PO2 84.9 mmHg (83.0-108.0); ABG TOTAL HEMOGLOBIN 8.0 G/dL (12.0-16.0); FRACTIONATED INSPIRED OXYGEN 80.0 %; PEEP,BG 10 cm H2O; SET RATE, BG 26.0; SITE, ABG LEFT BRACHIAL; VT, ABG 475 mL
[2024-11-04] MEDS ORDERED: Sodium Bicarbonate 150 MEQ in IV D5/0.45 NACL 1,000 ML IV SCH (13:00)
[2024-11-04] MEDS: Sodium Bicarbonate 150 MEQ in IV D5/0.45 NACL 1,000 ML IV SCH (14:05)
[2024-11-04] MEDS: SODIUM BICARBONATE SYR 50 MEQ/50 ML DISP.SYRIN IV ONE (14:06)
[2024-11-04] MEDS: PANTOPRAZOLE 40 MG VIAL IV SCH (21:10)
[2024-11-04] MEDS: NOREPINEPHRINE 8 MG in IV D5W 250ML IV PRN (22:34)
[2024-11-05] VITALS (101 sets, daily range): BP systolic 60–115; BP diastolic 17–75; TEMP 97.4–97.8; O2SAT 72–99
[2024-11-05] MEDS: VASOPRESSIN INJ 20 UNIT/ML VIAL ONE (02:38)
[2024-11-05] MEDS: VASOPRESSIN INJ 40 UNIT in IV NS 0.9% 38 ML IV PRN (02:46)
[2024-11-05 04:14] LABS: PLATELET COUNT (AUTO) 72 K/uL (150-450); RED BLOOD CELL COUNT(AUTO) 2.80 MIL/uL (4.0-5.2); RED CELL DISTRIBUTION WIDTH 15.7 % (11.5-15.0)
[2024-11-05 04:29] LABS: ASPARTATE AMINOTRANSFERASE 30 U/L (15-37); CALCIUM, SERUM 8.1 mg/dL (8.5-10.1); CREATININE 1.8 mg/dL (0.6-1.3); SODIUM SERUM 137 mmol/L (136-145); TOTAL PROTEIN, SERUM 5.1 g/dL (6.4-8.2); UREA NITROGEN, BLOOD 44 mg/dL (7-18)
[2024-11-05 04:42] LABS: WHITE BLOOD COUNT (AUTO) 31.8 K/uL (4.3-11.0)
[2024-11-05 06:12] LABS: BASOPHILS % (MANUAL) 0 % (0.0-2.0); EOSINOPHILS % (MANUAL) 3 % (0-4); LYMPHOCYTES % (MANUAL) 2 % (16-48); MONOCYTES % (MANUAL) 1 % (0-11.0); NEUTROPHILS % (MANUAL) 94 (42-76); PLATELET ESTIMATE DECREASED
[2024-11-05 08:30] LABS: ABG BASE EXCESS -16.4 mmol/L (-2.0-3.0); ABG OXYGEN SATURATION 94.0 % (94.0-98.0); ABG PCO2 28.3 mmHg (32.0-45.0); ABG PH 7.186 (7.350-7.450); ABG PO2 87.6 mmHg (83.0-108.0); ABG TOTAL HEMOGLOBIN 8.9 G/dL (12.0-16.0); FRACTIONATED INSPIRED OXYGEN 80.0 %; PEEP,BG 10 cm H2O; SET RATE, BG 26.0; SITE, ABG LEFT BRACHIAL; VT, ABG 475 mL
[2024-11-05] MEDS: SODIUM BICARBONATE SYR 50 MEQ/50 ML DISP.SYRIN IV ONE (09:22)
[2024-11-05] MEDS: POTASSIUM CL. PREMIX PERIPHER. 50 ML IV SCH (09:22)
[2024-11-05] MEDS: Magnesium 1GM/D5W 100ML PREMIX PIGGYBACK IV ONE (09:22)
[2024-11-05] MEDS: HYDROCORTISONE SOD SUCCINATE 100 MG/2 ML VIAL IV ONE (09:22)
[2024-11-05] MEDS: Sodium Bicarbonate 150 MEQ in IV D5W 1,000 ML IV SCH (09:29)
[2024-11-05] MEDS: NOREPINEPHRINE 32 MG in IV NS 0.9% 218 ML IV PRN (15:21)
[2024-11-05 17:02] LABS: CALCIUM, SERUM 7.9 mg/dL (8.5-10.1); CREATININE 1.9 mg/dL (0.6-1.3); SODIUM SERUM 139.0 mmol/L (136-145); UREA NITROGEN, BLOOD 37.0 mg/dL (7-18)
[2024-11-06] VITALS (93 sets, daily range): BP systolic 71–124; BP diastolic 16–88; TEMP 97.2–98.4; O2SAT 77–93
[2024-11-06 05:04] LABS: PLATELET COUNT (AUTO) 62 K/uL (150-450); RED BLOOD CELL COUNT(AUTO) 2.27 MIL/uL (4.0-5.2); RED CELL DISTRIBUTION WIDTH 16.3 % (11.5-15.0)
[2024-11-06 05:08] LABS: WHITE BLOOD COUNT (AUTO) 38.1 K/uL (4.3-11.0)
[2024-11-06 05:19] LABS: ASPARTATE AMINOTRANSFERASE 27 U/L (15-37); CREATININE 1.4 mg/dL (0.6-1.3); SODIUM SERUM 145 mmol/L (136-145); TOTAL PROTEIN, SERUM 3.5 g/dL (6.4-8.2); UREA NITROGEN, BLOOD 31 mg/dL (7-18)
[2024-11-06 05:26] LABS: CALCIUM, SERUM 5.9 mg/dL (8.5-10.1)
[2024-11-06 05:49] LABS: BASOPHILS % (MANUAL) 0 % (0.0-2.0); EOSINOPHILS % (MANUAL) 0 % (0-4); LYMPHOCYTES % (MANUAL) 8 % (16-48); MONOCYTES % (MANUAL) 0 % (0-11.0); NEUTROPHILS % (MANUAL) 92 (42-76); PLATELET ESTIMATE DECREASED; REACTIVE LYMPHOCYTES 0 % (0-0)
[2024-11-06] MEDS: POTASSIUM CL. PREMIX PERIPHER. 50 ML IV SCH ×2 (07:11→09:21)
[2024-11-06] MEDS: Magnesium 1GM/D5W 100ML PREMIX 100 ML IV SCH (08:15)
[2024-11-06] MEDS: Calcium Gluconate 1GM/10ML 4.65 MEQ in IV NS 0.9% 100 ML IV ONE (08:43)
[2024-11-06 08:49] LABS: PHOSPHORUS 4.5 mg/dL (2.5-4.9)
[2024-11-06 09:46] LABS: PLATELET COUNT (AUTO) 77 K/uL (150-450); RED BLOOD CELL COUNT(AUTO) 2.77 MIL/uL (4.0-5.2); RED CELL DISTRIBUTION WIDTH 16.3 % (11.5-15.0)
[2024-11-06 09:49] LABS: CALCIUM, SERUM 7.7 mg/dL (8.5-10.1); CREATININE 1.9 mg/dL (0.6-1.3); SODIUM SERUM 140 mmol/L (136-145); UREA NITROGEN, BLOOD 37 mg/dL (7-18)
[2024-11-06 09:51] LABS: WHITE BLOOD COUNT (AUTO) 44.7 K/uL (4.3-11.0)
[2024-11-06 10:06] LABS: ASPARTATE AMINOTRANSFERASE 38 U/L (15-37); TOTAL PROTEIN, SERUM 4.4 g/dL (6.4-8.2)
[2024-11-06 12:17] LABS: LYMPHOCYTES % (MANUAL) 9 % (16-48); NEUTROPHILS % (MANUAL) 91 (42-76); PLATELET ESTIMATE DECREASED
[2024-11-06 13:15] LABS: ABG BASE EXCESS -17.7 mmol/L (-2.0-3.0); ABG OXYGEN SATURATION 92.7 % (94.0-98.0); ABG PCO2 27.8 mmHg (32.0-45.0); ABG PH 7.156 (7.350-7.450); ABG PO2 80.6 mmHg (83.0-108.0); ABG TOTAL HEMOGLOBIN 9.2 G/dL (12.0-16.0); FRACTIONATED INSPIRED OXYGEN 90.0 %; PEEP,BG 10 cm H2O; SET RATE, BG 26.0; SITE, ABG LEFT RADIAL; VT, ABG 500 mL
[2024-11-06] MEDS: SODIUM BICARBONATE SYR 50 MEQ/50 ML DISP.SYRIN IV ONE (13:27)
[2024-11-06] MEDS: HYDROCORTISONE SOD SUCCINATE 100 MG/2 ML VIAL IV SCH (13:28)
[2024-11-07] VITALS (99 sets, daily range): BP systolic 73–120; BP diastolic 27–89; TEMP 96.4–97.8; O2SAT 80–97
[2024-11-07 05:02] LABS: PLATELET COUNT (AUTO) 61 K/uL (150-450); RED BLOOD CELL COUNT(AUTO) 2.73 MIL/uL (4.0-5.2); RED CELL DISTRIBUTION WIDTH 16.2 % (11.5-15.0)
[2024-11-07 05:09] LABS: WHITE BLOOD COUNT (AUTO) 37.7 K/uL (4.3-11.0)
[2024-11-07 05:13] LABS: CALCIUM, SERUM 7.8 mg/dL (8.5-10.1); CREATININE 1.5 mg/dL (0.6-1.3); PHOSPHORUS 5.1 mg/dL (2.5-4.9); SODIUM SERUM 141.0 mmol/L (136-145); UREA NITROGEN, BLOOD 37.0 mg/dL (7-18)
[2024-11-07 07:15] LABS: BASOPHILS % (MANUAL) 0 % (0.0-2.0); EOSINOPHILS % (MANUAL) 0 % (0-4); LYMPHOCYTES % (MANUAL) 2 % (16-48); METAMYELOCYTES % 0 % (0-0); MONOCYTES % (MANUAL) 0 % (0-11.0); NEUTROPHILS % (MANUAL) 95 (42-76); NUCLEATED RED BLOOD CELLS 2.0 /100WBC (0.0-0.0); PLATELET ESTIMATE DECREASED; REACTIVE LYMPHOCYTES 0 % (0-0)
[2024-11-07 08:32] LABS: ABG BASE EXCESS -10.7 mmol/L (-2.0-3.0); ABG OXYGEN SATURATION 92.5 % (94.0-98.0); ABG PCO2 34.6 mmHg (32.0-45.0); ABG PH 7.265 (7.350-7.450); ABG PO2 77.5 mmHg (83.0-108.0); ABG TOTAL HEMOGLOBIN 8.7 G/dL (12.0-16.0); FRACTIONATED INSPIRED OXYGEN 90.0 %; PEEP,BG 10 cm H2O; SET RATE, BG 26.0; SITE, ABG LEFT BRACHIAL; VT, ABG 500 mL
[2024-11-07] MEDS: POTASSIUM CL. PREMIX PERIPHER. 50 ML IV SCH (09:25)
[2024-11-07] MEDS: Magnesium 1GM/D5W 100ML PREMIX 100 ML IV SCH (09:25)
[2024-11-07] MEDS: TPN #1 IV SCH (11:52)
[2024-11-07] MEDS ORDERED: TPN/PPN PER PHARMACY IV SCH (12:00)
[2024-11-08] VITALS (98 sets, daily range): BP systolic 44–131; BP diastolic 13–97; TEMP 97–97.6; O2SAT 84–100
[2024-11-08 04:30] LABS: RED BLOOD CELL COUNT(AUTO) 2.54 MIL/uL (4.0-5.2); RED CELL DISTRIBUTION WIDTH 15.8 % (11.5-15.0); WHITE BLOOD COUNT (AUTO) 23.0 K/uL (4.3-11.0)
[2024-11-08 04:41] LABS: CALCIUM, SERUM 7.7 mg/dL (8.5-10.1); CREATININE 1.5 mg/dL (0.6-1.3); PHOSPHORUS 4.3 mg/dL (2.5-4.9); SODIUM SERUM 140 mmol/L (136-145); UREA NITROGEN, BLOOD 38 mg/dL (7-18)
[2024-11-08 04:49] LABS: PLATELET COUNT (AUTO) 40 K/uL (150-450)
[2024-11-08 05:45] LABS: LYMPHOCYTES % (MANUAL) 5 % (16-48); MONOCYTES % (MANUAL) 1 % (0-11.0); NEUTROPHILS % (MANUAL) 94 (42-76); PLATELET ESTIMATE DECREASED
[2024-11-08] MEDS: POTASSIUM CL. PREMIX PERIPHER. 50 ML IV SCH (09:44)
[2024-11-08] MEDS: TPN #2 IV SCH (13:40)
[2024-11-09] VITALS (65 sets, daily range): BP systolic 37–99; BP diastolic 13–48; TEMP 97–97.6; O2SAT 52–99
[2024-11-09] MEDS: PROPOFOL 100 ML IV PRN (09:23)
[2024-11-09 09:34] LABS: RED CELL DISTRIBUTION WIDTH 16.1 % (11.5-15.0); WHITE BLOOD COUNT (AUTO) 12.1 K/uL (4.3-11.0)
[2024-11-09 09:41] LABS: CREATININE 1.7 mg/dL (0.6-1.3); PHOSPHORUS 3.8 mg/dL (2.5-4.9); UREA NITROGEN, BLOOD 35.0 mg/dL (7-18)
[2024-11-09 09:46] LABS: SODIUM SERUM 132.0 mmol/L (136-145)
[2024-11-09 09:59] LABS: CALCIUM, SERUM 5.7 mg/dL (8.5-10.1)
[2024-11-09 10:00] LABS: RED BLOOD CELL COUNT(AUTO) 1.86 MIL/uL (4.0-5.2)
[2024-11-09 10:01] LABS: PLATELET COUNT (AUTO) 46 K/uL (150-450)
[2024-11-09 10:35] LABS: LYMPHOCYTES % (MANUAL) 2 % (16-48); MONOCYTES % (MANUAL) 1 % (0-11.0); NEUTROPHILS % (MANUAL) 97 (42-76); PLATELET ESTIMATE DECREASED
[2024-11-09] MEDS ORDERED: POTASSIUM CL. PREMIX PERIPHER. 50 ML IV SCH (14:00)
[2024-11-09] MEDS: TPN #3 IV SCH (15:35)
== END 2024-11-09 17:18 | disposition hospice, inpatient (51) | DRG 870 ==
LOC: ER 10:02 → ICU 11:15
PROVIDERS: ATTEND Nurse Practitioner Acute Care
PROC: 5A1955Z Respiratory Ventilation, Greater than 96 Consecutive Hours (ICD-10-PCS; principal; 2024-10-27)
PROC: 02HV33Z Insertion of Infusion Device into Superior Vena Cava, Percutaneous Approach (ICD-10-PCS; 2024-10-27)
PROC: B548ZZA Ultrasonography of Superior Vena Cava, Guidance (ICD-10-PCS; 2024-10-27)
PROC: 0BH17EZ Insertion of Endotracheal Airway into Trachea, Via Natural or Artificial Opening (ICD-10-PCS; 2024-10-27)
PROC: 30233R1 Transfusion of Nonautologous Platelets into Peripheral Vein, Percutaneous Approach (ICD-10-PCS; 2024-11-08)
DX: A41.9 Sepsis, unspecified organism (principal); L89.323 Pressure ulcer of left buttock, stage 3; L89.313 Pressure ulcer of right buttock, stage 3; J96.01 Acute respiratory failure with hypoxia; N17.0 Acute kidney failure with tubular necrosis; K85.90 Acute pancreatitis without necrosis or infection, unspecified; R65.21 Severe sepsis with septic shock; I50.31 Acute diastolic (congestive) heart failure; N13.6 Pyonephrosis; I13.0 Hypertensive heart and chronic kidney disease with heart failure and stage 1 through stage 4 chronic kidney disease, or unspecified chronic kidney disease; T87.43 Infection of amputation stump, right lower extremity; K92.2 Gastrointestinal hemorrhage, unspecified; D68.59 Other primary thrombophilia; I48.20 Chronic atrial fibrillation, unspecified; E44.0 Moderate protein-calorie malnutrition; E87.1 Hypo-osmolality and hyponatremia; E87.4 Mixed disorder of acid-base balance; G93.40 Encephalopathy, unspecified; Z99.11 Dependence on respirator [ventilator] status; K56.7 Ileus, unspecified; N30.01 Acute cystitis with hematuria; Z16.12 Extended spectrum beta lactamase (ESBL) resistance; Z51.5 Encounter for palliative care; Z66 Do not resuscitate; L03.031 Cellulitis of right toe; N18.30 Chronic kidney disease, stage 3 unspecified; Y83.5 Amputation of limb(s) as the cause of abnormal reaction of the patient, or of later complication, without mention of misadventure at the time of the procedure; Y92.9 Unspecified place or not applicable; Z20.822 Contact with and (suspected) exposure to COVID-19; K21.9 Gastro-esophageal reflux disease without esophagitis; E11.22 Type 2 diabetes mellitus with diabetic chronic kidney disease; E11.51 Type 2 diabetes mellitus with diabetic peripheral angiopathy without gangrene; I50.9 Heart failure, unspecified; Z93.6 Other artificial openings of urinary tract status; R26.2 Difficulty in walking, not elsewhere classified; Z98.890 Other specified postprocedural states; Z88.2 Allergy status to sulfonamides; Z91.048 Other nonmedicinal substance allergy status; Z79.01 Long term (current) use of anticoagulants; Z79.899 Other long term (current) drug therapy; B96.89 Other specified bacterial agents as the cause of diseases classified elsewhere; L22 Diaper dermatitis; R32 Unspecified urinary incontinence; S20.313A Abrasion of bilateral front wall of thorax, initial encounter; X58.XXXA Exposure to other specified factors, initial encounter; Z74.09 Other reduced mobility; E66.9 Obesity, unspecified; E11.40 Type 2 diabetes mellitus with diabetic neuropathy, unspecified; E88.09 Other disorders of plasma-protein metabolism, not elsewhere classified; D64.9 Anemia, unspecified; D69.6 Thrombocytopenia, unspecified; E83.42 Hypomagnesemia; E87.6 Hypokalemia; N20.0 Calculus of kidney; Y95 Nosocomial condition; Z93.2 Ileostomy status; Z87.891 Personal history of nicotine dependence; Z87.39 Personal history of other diseases of the musculoskeletal system and connective tissue; M89.8X9 Other specified disorders of bone, unspecified site; K43.5 Parastomal hernia without obstruction or gangrene; Z68.32 Body mass index [BMI] 32.0-32.9, adult; B96.20 Unspecified Escherichia coli [E. coli] as the cause of diseases classified elsewhere; E11.621 Type 2 diabetes mellitus with foot ulcer; L97.519 Non-pressure chronic ulcer of other part of right foot with unspecified severity; J44.9 Chronic obstructive pulmonary disease, unspecified
CPT/HCPCS: 31720; 36415; 36600; 71045-TC; 71250-TC; 74018; 76770-TC; 80048-TC; 80053-TC; 80076-TC; 81001; 82248-TC; 82533; 82550-TC; 82570-TC; 82803-TC; 82962-TC; 83605-TC; 83690-TC; 83735-TC; 83970; 84100-TC; 84155; 84165; 84300-TC; 84478-TC; 84484-TC; 85025-TC; 85027-TC; 85378-TC; 85730-TC; 86850-TC; 87040-TC; 87070-TC; 87081-TC; 87086-TC; 87102-TC; 87186-TC; 87205-TC; 93307-TC; 94002-TC; 94003-TC; 94640-TC; 94799-TC; 99082-TC; A4216; A4223; A6223; A6253; A6403; A7526; G0378; J0330; J0612; J1644; J1720; J2020; J2185; J2248; J2250; J2470; J2543; J2765; J2919; J3010; J3373; J3475; J3480; J3490; J7030; J7040; J7042; J7050; J7060; J7070; J7120; P9034; P9047

== ENCOUNTER 2024-11-09 17:05 | Inpatient (IN) | payer OTHER ==
[~2024-11-09 17:05] MED LIST changes: +GUAI-1189 PO
[2024-11-09] MEDS ORDERED: LORAZEPAM INJ 2 MG/ML VIAL IV PRN (18:00)
[2024-11-09] MEDS ORDERED: Z GUARD REMEDY 4 OZ OINT TP PRN (18:00)
[2024-11-09] MEDS ORDERED: MORPHINE SULFATE/PF 30 MG in IV NS 0.9% 27 ML, PCA TOTAL VOLUME 1 BAG IV PRN (18:00)
[2024-11-09] MEDS: PANTOPRAZOLE 40 MG VIAL IV SCH (18:34)
[2024-11-09] MEDS: SCOPOLAMINE PATCH 1 MG/72HR TD SCH (18:35)
[2024-11-09 19:00] VITALS: BP 42/26; O2SAT 88
[2024-11-09] MEDS: IV NS 0.9% 1,000 ML IV PRN (19:29)
[2024-11-09 20:00] VITALS: BP 39/29; TEMP 97; O2SAT 83
[2024-11-09 21:00] VITALS: BP 43/14; O2SAT 84
[2024-11-09 22:00] VITALS: BP 44/21; O2SAT 85
[2024-11-09 23:00] VITALS: BP 34/15; O2SAT 85
== END 2024-11-10 01:09 | DRG 720 ==
LOC: ICU 17:05
PROVIDERS: ADMIT Nurse Practitioner Acute Care; ATTEND Nurse Practitioner Acute Care
PROC: 5A1935Z Respiratory Ventilation, Less than 24 Consecutive Hours (ICD-10-PCS; principal; 2024-11-09)
DX: A41.9 Sepsis, unspecified organism (principal); J96.01 Acute respiratory failure with hypoxia; R65.21 Severe sepsis with septic shock; G92.8 Other toxic encephalopathy; D69.6 Thrombocytopenia, unspecified; I48.20 Chronic atrial fibrillation, unspecified; D64.9 Anemia, unspecified; E11.51 Type 2 diabetes mellitus with diabetic peripheral angiopathy without gangrene; N17.9 Acute kidney failure, unspecified; Z51.5 Encounter for palliative care; Z66 Do not resuscitate; Z87.891 Personal history of nicotine dependence; Z79.01 Long term (current) use of anticoagulants; Z79.899 Other long term (current) drug therapy; Z88.2 Allergy status to sulfonamides; Z91.048 Other nonmedicinal substance allergy status; E66.9 Obesity, unspecified; I10 Essential (primary) hypertension; J44.9 Chronic obstructive pulmonary disease, unspecified; N20.0 Calculus of kidney; Z89.429 Acquired absence of other toe(s), unspecified side; Z74.01 Bed confinement status
CPT/HCPCS: 31720; 94799-TC; A4223; A6403; G0378; J2274; J2470; J7030; J7060